=== PATIENT | female | born 1985 | race Caucasian/White ===

== ENCOUNTER → 2016-09-08 | Outpatient (CLI) | payer OTHER ==
[~2016-09-08] MED LIST: EFFEXOR100 MG PO; PHENERGAN25 MG RC; TIROSINT75 MCG PO; WELLBUTRIN 100100 MG PO
== END ==
LOC: BHSO 16:06
DX: F33.1 Major depressive disorder, recurrent, moderate (principal)

== ENCOUNTER → 2016-09-24 | Outpatient (CLI) | payer OTHER | LOC: BHSO 14:26 | DX: F41.1 Generalized anxiety disorder (principal) ==

== ENCOUNTER → 2016-11-23 | Outpatient (CLI) | payer OTHER ==
[~2016-11-23] MED LIST changes: +CLEOCIN HCL300 MG PO; +NORCO 325 MG-51 TAB PO
== END ==
LOC: BHSO 10:13
DX: F41.1 Generalized anxiety disorder (principal)

== ENCOUNTER 2017-02-12 11:18 | Emergency (ER) | payer OTHER ==
[~2017-02-12] VITALS: Ht 165.1 cm; Wt 86.4 kg
[~2017-02-12 11:18] MED LIST changes: -CLEOCIN HCL300 MG PO; -NORCO 325 MG-51 TAB PO
[2017-02-12 11:22] VITALS: BP 133/78; TEMP 98.5
[2017-02-12] MEDS ORDERED: NORCO 325 MG-51 TAB PO (14:58)
[2017-02-12] MEDS ORDERED: CLEOCIN HCL300 MG PO (15:02)
[2017-02-12 15:32] VITALS: PULSE 85
== END 2017-02-12 15:34 | disposition home or self-care (01) ==
LOC: COL.ER 11:18
DX: S51.012A Laceration without foreign body of left elbow, initial encounter (principal); F41.9 Anxiety disorder, unspecified; F17.210 Nicotine dependence, cigarettes, uncomplicated; Z98.51 Tubal ligation status; W55.12XA Struck by horse, initial encounter
CPT/HCPCS: J1170; J3010; J7030

== ENCOUNTER → 2017-09-02 | Outpatient (CLI) | payer OTHER ==
[~2017-09-02] MED LIST changes: +CLEOCIN HCL300 MG PO; +NORCO 325 MG-51 TAB PO
== END ==
LOC: BHSO 14:35
DX: F41.0 Panic disorder [episodic paroxysmal anxiety] (principal)
CPT/HCPCS: G0463

== ENCOUNTER 2018-05-04 05:59 | Emergency (ER) | payer OTHER ==
[~2018-05-04] VITALS: Ht 165.1 cm; Wt 81.8 kg
[2018-05-04 06:04] VITALS: BP 124/71; TEMP 98.6
[2018-05-04 07:02] VITALS: PULSE 84
== END 2018-05-04 07:03 | disposition home or self-care (01) ==
LOC: COL.ER 05:59
DX: T15.91XA Foreign body on external eye, part unspecified, right eye, initial encounter (principal)

== ENCOUNTER 2018-12-03 17:14 | Emergency (ER) | payer OTHER ==
[~2018-12-03] VITALS: Ht 165.1 cm; Wt 68.2 kg
[~2018-12-03 17:14] MED LIST changes: +CLARITIN 1010 MG/TAB PO; +INFANTS AQU400 IU/ML; +SYNTHROID0.1 MG/TAB PO; +VALTREX 50500 MG/TAB PO
[2018-12-03 17:34] VITALS: BP 131/59; TEMP 98.7
[2018-12-03 18:00] LABS: COLLECTION METHOD CLEAN CATCH
[2018-12-03 18:03] LABS: BASO # 0.1 (0.0-0.2); BASO % 0.5 % (0.0-2.0); EOS % 0.1 % (0-4.0); GRAN # 8.1 (1.4-6.5); GRAN % 72.8 % (42.2-75.2); HEMATOCRIT 39.3 % (37.0-47.0); LYMPH # 2.2 (1.2-3.4); LYMPH % 19.5 % (20.0-51.0); MEAN CELL VOLUME 95 fl (80.0-100.0); MEAN CORPUSCULAR HEMOGLOBIN 31 pg (27.0-31.0); MEAN CORPUSCULAR HGB CONC 33 g/dl (33.0-37.0); MEAN PLATELET VOLUME 9.2 fl (7.4-10.4); MONO # 0.7 (0.1-0.6); MONO % 6.6 % (1.7-9.3); PLATELET COUNT 266 K/mm3 (130-400); RED BLOOD COUNT 4.14 M/mm3 (4.10-5.30); REDCELL DISTRIBUTION WIDTH-CV 13.5 % (11.5-14.5)
[2018-12-03 18:17] LABS: MUCOUS Present /lpf; PH 5 (5-8); URINE APPEARANCE Hazy; URINE BACTERIA Rare /hpf; URINE BILIRUBIN Negative (NEGATIVE); URINE BLOOD 3+ (NEGATIVE); URINE COLOR Amber; URINE GLUCOSE Negative (NEGATIVE); URINE KETONE Negative (NEGATIVE); URINE LEUKOCYTE ESTERASE Negative (NEGATIVE); URINE NITRATE Positive (NEGATIVE); URINE PROTEIN(semi-quant) 2+ (NEGATIVE); URINE RBC >50 /hpf; URINE UROBILINOGEN >=4.0 mg/dL (NEGATIVE)
[2018-12-03 18:23] LABS: ALBUMIN 4.1 gm/dL (3.5-5.0); BILIRUBIN,TOTAL 0.7 mg/dL (0.0-1.0); CALCIUM 9.1 mg/dL (8.4-10.2); CREATININE, serum 0.67 (0.52-1.25)
[2018-12-03] MEDS ORDERED: OMNICEF 300MG300 MG PO ×2 (19:23)
[2018-12-03] MEDS ORDERED: ZOFRAN ODT4 MG PO ×2 (19:23)
[2018-12-03] MEDS ORDERED: NORCO 325 MG-51 TAB PO (19:23)
[2018-12-03 19:43] VITALS: PULSE 80
== END 2018-12-03 19:40 | disposition home or self-care (01) ==
LOC: COL.ER 17:14
PROVIDERS: Emergency Medicine
DX: N12 Tubulo-interstitial nephritis, not specified as acute or chronic (principal)
CPT/HCPCS: J0696; J1170; J1885; J2405; J7030

== ENCOUNTER 2019-03-29 10:23 | Emergency (ER) | payer OTHER ==
[~2019-03-29] VITALS: Ht 165.1 cm; Wt 72.3 kg
[~2019-03-29 10:23] MED LIST changes: +OMNICEF 300MG300 MG PO; +ZOFRAN ODT4 MG PO
[2019-03-29 10:27] VITALS: BP 126/73; TEMP 97.4
[2019-03-29 11:29] VITALS: PULSE 84
== END 2019-03-29 11:30 | disposition home or self-care (01) ==
LOC: COL.ER 10:23
DX: S49.91XA Unspecified injury of right shoulder and upper arm, initial encounter (principal); F17.210 Nicotine dependence, cigarettes, uncomplicated; Z98.890 Other specified postprocedural states; X50.1XXA Overexertion from prolonged static or awkward postures, initial encounter; Y92.009 Unspecified place in unspecified non-institutional (private) residence as the place of occurrence of the external cause

== ENCOUNTER 2019-04-16 17:08 | Emergency (ER) | payer OTHER ==
[~2019-04-16] VITALS: Ht 165.1 cm; Wt 72.7 kg
[2019-04-16 17:13] VITALS: BP 129/78; PULSE 94; TEMP 97.4
== END 2019-04-16 18:30 | disposition home or self-care (01) ==
LOC: COL.ER 17:08
DX: S61.012A Laceration without foreign body of left thumb without damage to nail, initial encounter (principal); E03.9 Hypothyroidism, unspecified; W26.0XXA Contact with knife, initial encounter; Y93.G3 Activity, cooking and baking; Y92.009 Unspecified place in unspecified non-institutional (private) residence as the place of occurrence of the external cause
CPT/HCPCS: J1670

== ENCOUNTER 2019-11-12 10:10 | Emergency (ER) | payer MEDICAID ==
[~2019-11-12] VITALS: Ht 165.1 cm; Wt 68.2 kg
[2019-11-12 10:23] VITALS: BP 132/85; TEMP 98.3
[2019-11-12 11:54] VITALS: PULSE 88
== END 2019-11-12 11:56 | disposition home or self-care (01) ==
LOC: COL.ER 10:10
DX: S61.411A Laceration without foreign body of right hand, initial encounter (principal); E03.9 Hypothyroidism, unspecified; Z23 Encounter for immunization; Z79.890 Hormone replacement therapy; W22.8XXA Striking against or struck by other objects, initial encounter; Y92.009 Unspecified place in unspecified non-institutional (private) residence as the place of occurrence of the external cause
CPT/HCPCS: J1670

== ENCOUNTER 2020-01-30 13:07 | Emergency (ER) | payer MEDICAID ==
[~2020-01-30] VITALS: Ht 165.1 cm; Wt 68.2 kg
[2020-01-30 13:11] VITALS: BP 143/85; TEMP 98.9
[2020-01-30 13:54] LABS: COLLECTION METHOD CLEAN CATCH
[2020-01-30 13:56] LABS: BASO # 0.1 (0.0-0.2); EOS # 0.1 (0.0-0.7); EOS % 1.8 % (0-4.0); GRAN # 4.3 (1.4-6.5); GRAN % 55.1 % (42.2-75.2); HEMOGLOBIN 13.1 g/dl (12.5-16.0); LYMPH # 2.6 (1.2-3.4); LYMPH % 33.1 % (20.0-51.0); MEAN CELL VOLUME 93 fl (80.0-100.0); MEAN CORPUSCULAR HEMOGLOBIN 31 pg (27.0-31.0); MEAN CORPUSCULAR HGB CONC 34 g/dl (33.0-37.0); MONO # 0.6 (0.1-0.6); MONO % 8.2 % (1.7-9.3); PLATELET COUNT 391 K/mm3 (130-400); RED BLOOD COUNT 4.21 M/mm3 (4.10-5.30); REDCELL DISTRIBUTION WIDTH-CV 12.6 % (11.5-14.5)
[2020-01-30 14:00] LABS: PH 7 (5-8); SQUAMOUS EPITHELIAL 0-2 /hpf; URINE APPEARANCE Clear; URINE BACTERIA None Seen /hpf; URINE BILIRUBIN Negative (NEGATIVE); URINE BLOOD 1+ (NEGATIVE); URINE COLOR Yellow; URINE GLUCOSE Negative (NEGATIVE); URINE KETONE Negative (NEGATIVE); URINE LEUKOCYTE ESTERASE Negative (NEGATIVE); URINE NITRATE Negative (NEGATIVE); URINE PROTEIN(semi-quant) Negative (NEGATIVE); URINE RBC 0-2 /hpf; URINE UROBILINOGEN Negative (NEGATIVE)
[2020-01-30 14:11] LABS: ALANINE AMINOTRANSFERASE 9 U/L (4-34); ALBUMIN 4.1 gm/dL (3.5-5.0); ALKALINE PHOSPHATASE 55 U/L (50-136); ANION GAP 10 mmol/L (7-16); AST,SGOT 17 U/L (15-37); BILIRUBIN,TOTAL 0.4 mg/dL (0.0-1.0); BLOOD UREA NITROGEN 8 mg/dL (7-17); CARBON DIOXIDE 22 mmol/L (22-30); CHLORIDE 106 mmol/L (98-107); CREATININE, serum 0.62 (0.52-1.25); GLUCOSE 97 mg/dL (74-106); POTASSIUM 3.8 mmol/L (3.4-5.0); SODIUM 138 mmol/L (137-145); TOTAL PROTEIN 6.8 gm/dL (6.4-8.2)
[2020-01-30 14:12] LABS: C-REACTIVE PROTEIN < 0.5 mg/dL (0.0-0.9)
[2020-01-30] MEDS ORDERED: NORCO 325 MG-51 TAB PO (15:22)
[2020-01-30 15:33] VITALS: PULSE 78
== END 2020-01-30 15:33 | disposition home or self-care (01) ==
LOC: COL.ER 13:07
PROVIDERS: Emergency Medicine
DX: R10.32 Left lower quadrant pain (principal); Z79.890 Hormone replacement therapy
CPT/HCPCS: J1170; J1885; J7030; Q9967

== ENCOUNTER 2021-05-01 23:52 | Emergency (ER) | payer MEDICAID ==
[~2021-05-01] VITALS: Ht 162.6 cm; Wt 68.2 kg
[~2021-05-01 23:52] MED LIST changes: +DIFLUCAN150 MG PO; +ZOFRAN 4MG T4 MG/TAB PO
[2021-05-02 00:04] VITALS: TEMP 97.7
[2021-05-02 01:15] LABS: BASO # 0.1 K/mm3 (0.0-0.2); BASO % 0.8 % (0.0-2.0); EOS # 0.1 K/mm3 (0.0-0.7); GRAN # 3.1 K/mm3 (1.4-6.5); GRAN % 51.3 % (42.2-75.2); HEMOGLOBIN 12.7 g/dl (12.5-16.0); LYMPH # 2.3 K/mm3 (1.2-3.4); LYMPH % 37.3 % (20.0-51.0); MEAN CELL VOLUME 92 fl (80.0-100.0); MEAN CORPUSCULAR HEMOGLOBIN 31 pg (27-31); MEAN CORPUSCULAR HGB CONC 33 g/dl (33.0-37.0); MONO # 0.5 K/mm3 (0.1-0.6); MONO % 8.1 % (1.7-9.3); PLATELET COUNT 299 K/mm3 (130-400); RED BLOOD COUNT 4.15 M/mm3 (4.10-5.30); REDCELL DISTRIBUTION WIDTH-CV 12.9 % (11.5-14.5)
[2021-05-02 01:31] LABS: ALBUMIN 4.2 gm/dL (3.5-5.0); ALKALINE PHOSPHATASE 36 U/L (40-150); ANION GAP 10 mmol/L (7-16); AST,SGOT 11 U/L (5-34); BILIRUBIN,TOTAL 0.4 mg/dL (0.2-1.2); BLOOD UREA NITROGEN 6 mg/dL (7-19); CALCIUM 8.7 mg/dL (8.4-10.2); CARBON DIOXIDE 22 mmol/L (22-29); CHLORIDE 113 mmol/L (98-107); CREATININE, serum 0.67 mg/dL (0.57-1.11); GLUCOSE 95 mg/dL (70-99); POTASSIUM 4.1 mmol/L (3.5-4.5); SODIUM 145 mmol/L (136-145); TOTAL PROTEIN 6.8 gm/dL (6.2-8.1)
[2021-05-02 01:33] LABS: ALANINE AMINOTRANSFERASE < 6 U/L (0-55)
[2021-05-02 03:14] LABS: COLLECTION METHOD CLEAN CATCH
[2021-05-02 03:35] LABS: PH 6 (5-8); SQUAMOUS EPITHELIAL 0-2 /hpf (0-10); URINE APPEARANCE Clear (CLEAR/HAZY); URINE BACTERIA None Seen (NONE SEEN); URINE BILIRUBIN Negative (NEGATIVE); URINE BLOOD Negative (NEGATIVE); URINE COLOR Colorless (YELLOW); URINE GLUCOSE Negative (NEGATIVE); URINE KETONE Negative (NEGATIVE); URINE LEUKOCYTE ESTERASE Negative (NEGATIVE); URINE NITRATE Negative (NEGATIVE); URINE PROTEIN(semi-quant) Negative (NEGATIVE); URINE RBC None Seen /hpf (0-2); URINE UROBILINOGEN Negative (NEGATIVE); URINE WBC 0-2 /hpf (0-2)
[2021-05-02] MEDS ORDERED: ZOFRAN ODT4 MG PO (05:17)
[2021-05-02] MEDS ORDERED: NORCO 325 MG-51 TAB PO (05:17)
[2021-05-02 05:23] VITALS: BP 128/78; PULSE 76
== END 2021-05-02 05:23 | disposition home or self-care (01) ==
LOC: COL.ER 23:52
PROVIDERS: Personal Emergency Response Attendant
DX: N83.202 Unspecified ovarian cyst, left side (principal); R11.2 Nausea with vomiting, unspecified; Z90.711 Acquired absence of uterus with remaining cervical stump; Z88.6 Allergy status to analgesic agent
CPT/HCPCS: J1200; J2270; J2405; J2550; J3010; J7030; Q9967

== ENCOUNTER 2021-05-03 07:03 | Observation (INO) | payer MEDICAID ==
[~2021-05-03] VITALS: Ht 165.1 cm; Wt 68.2 kg
[2021-05-03] VITALS (7 sets, daily range): BP systolic 111–130; BP diastolic 63–78; PULSE 62–93; TEMP 98–99.4
[2021-05-03 07:53] LABS: COLLECTION METHOD CLEAN CATCH
[2021-05-03 08:09] LABS: MUCOUS Present (NOT PRESENT); PH 5 (5-8); URINE APPEARANCE Hazy (CLEAR/HAZY); URINE BACTERIA None Seen (NONE SEEN); URINE BILIRUBIN Negative (NEGATIVE); URINE BLOOD Negative (NEGATIVE); URINE COLOR Yellow (YELLOW); URINE GLUCOSE Negative (NEGATIVE); URINE KETONE Negative (NEGATIVE); URINE LEUKOCYTE ESTERASE Trace (NEGATIVE); URINE NITRATE Negative (NEGATIVE); URINE PROTEIN(semi-quant) Negative (NEGATIVE); URINE RBC 0-2 /hpf (0-2)
[2021-05-03 08:26] LABS: BASO % 0.6 % (0.0-2.0); EOS # 0.2 K/mm3 (0.0-0.7); EOS % 2.7 % (0.0-4.0); GRAN # 4.3 K/mm3 (1.4-6.5); GRAN % 60.7 % (42.2-75.2); HEMATOCRIT 39.8 % (37.0-47.0); HEMOGLOBIN 13.1 g/dl (12.5-16.0); LYMPH # 1.9 K/mm3 (1.2-3.4); MEAN CELL VOLUME 93 fl (80.0-100.0); MEAN CORPUSCULAR HEMOGLOBIN 31 pg (27-31); MEAN CORPUSCULAR HGB CONC 33 g/dl (33.0-37.0); MEAN PLATELET VOLUME 9.8 fl (7.4-10.4); MONO # 0.6 K/mm3 (0.1-0.6); MONO % 8.4 % (1.7-9.3); PLATELET COUNT 289 K/mm3 (130-400); RED BLOOD COUNT 4.26 M/mm3 (4.10-5.30); REDCELL DISTRIBUTION WIDTH-CV 13.2 % (11.5-14.5)
[2021-05-03 08:29] LABS: ALANINE AMINOTRANSFERASE < 6 U/L (0-55); ALBUMIN 3.9 gm/dL (3.5-5.0); ALKALINE PHOSPHATASE 35 U/L (40-150); ANION GAP 11 mmol/L (7-16); AST,SGOT 9 U/L (5-34); BILIRUBIN,TOTAL 0.7 mg/dL (0.2-1.2); BLOOD UREA NITROGEN 14 mg/dL (7-19); C-REACTIVE PROTEIN < 0.02 mg/dL (0.00-0.50); CALCIUM 8.9 mg/dL (8.4-10.2); CARBON DIOXIDE 22 mmol/L (22-29); CHLORIDE 108 mmol/L (98-107); CREATININE, serum 0.76 mg/dL (0.57-1.11); GLUCOSE 122 mg/dL (70-99); LIPASE 22 U/L (8-78); POTASSIUM 3.6 mmol/L (3.5-4.5); SODIUM 141 mmol/L (136-145); TOTAL PROTEIN 6.3 gm/dL (6.2-8.1)
--- NOTE | 2021-05-03 16:04 | NUR ---
1545 TO RM 222 IN HOSPITAL BED. SM AMT OF RED DRNG AROUND BOTTOM DRSG-OUTLINED. IV INFUSING IN RAC. UP TO BATHROOM-VOIDED 300 CC CL YELLOW URINE.C/O BEING COLD-WARM BLANKET ON.SCDS ON. BOYFRIEND AT BEDSIDE.
--- NOTE | 2021-05-03 16:57 | NUR ---
DRINKING WATER. NO COMPLAINTS.
--- NOTE | 2021-05-03 17:21 | NUR ---
1700 UP TO BATHROOM-VOIDED 200 CC CLEAR YELLOW URINE. NO C/O PAIN. SL INCREASE IN DRNG ON DRESSING. NEW LINE DRAWN.
--- NOTE | 2021-05-03 18:56 | NUR ---
1730 PT ORDERED SUPPER. UP TO URINATE 200 CC
--- NOTE | 2021-05-03 19:00 | NUR ---
1900 UP TO BR WITH ASSIST AND VOIDED 300CC EASILY. SANA WELL. REG DIET TAKEN
--- NOTE | 2021-05-03 19:02 | NUR ---
1800 ROXICODONE GIVEN FOR PAIN AT LOWER INCISION BY BLADDER AREA.
--- NOTE | 2021-05-03 20:00 | NUR ---
2000 UP TO BR ON OWN AND VOIDED 400CC. IV INF AND TO INT. C/O SOME NAUSEA BUT TAKING PO WELL. 2029 ZOFRAN 4 MG IV FOR NAUSEA WITH GOOD RELIEF. LOWER ABD DRESSING REINFORCED WITH 2X2 FOR SOME SL DRAINAGE NOTED ON PT GOWN
--- NOTE | 2021-05-03 22:40 | NUR ---
2240 PT CALLED OUT WITH C/O PAIN. PT FOUND SITTING ON SIDE OF BED CLUTCHING RIGHT SIDE OF ABD UNDER RIGHT BREAST STATING IT IS SHARP PAIN. PT CRYING AND HYPERVENTALATING. LISTENED FOR BOWEL SOUNDS WITH NONE HEARD. PT CONTS TO CRY AND HOLD BREATH. ASSISTED TO STANDING UP AT SIDE OF BED WITH SOME RELIEF. 2245 MORPHINE 2 MG IV GIVEN. REMAINS UP. EACH TIME PT ATTEMPTS TO SIT DOWN SHE GAUTAM OUT AND CLUTCHES AREA UNDER RIGHT BREAST AND STANDS UP. FEELS BETTER IN STANDING POSITION OR WALKING AROUND THE ROOM 2315 CONTS TO HAVE PAIN IN RIGHT SIDE ABD AND IN RIGHT SHOULDER WITH NO RELIEF. DR JONES NOTIFIED AND NEW ORDER OBTAINED. 2320 MORPHINE 5 MG IV GIVEN. ATTEMPTED TO SIT ON BED AFTER MORPHINE BUT IMMEDIATELY STANDS UP STATING IT HURTS TO BAD, CRYING AND HYPERVENTALTING. BED POSITIONED TO PT CAN LEAN OVER IT ON PILLOWS. FEELS BETTER THAT WAY. 2350 PT STATES SHE TAKES XANAX AT HOME AND THAT MAY HELP HER. DR JONES NOTIFIED AND ORDER OBTAINED 2354 XANAX 0.25 GIVEN.
[2021-05-04 00:50] VITALS: BP 113/70; PULSE 108; TEMP 97.7
--- NOTE | 2021-05-04 00:50 | NUR ---
0050 PT TIRED AND WANTS TO TRY TO LAY DOWN. ASSISTED X2 TO LYING POSITION. PT CRYING, HOLDING BREATH, HYPERVENTALATING, CRYING IT HURTS TOO MUCH. TURNED TO LL. CRYING AND WANTING TO STAND UP. MORPHINE 5 MG IV GIVEN. TURNED TO RIGHT SIDE. PT STATES SHE FELT LIKE A BALL MOVED IN HER STOMACH AND NOW FEELS BETTER BUT STILL HURTS. 0100 TURNED BACK TO LEFT SIDE. FEELING BETTER. STATES THINKS CAN SLEEP NOW. 0130 UP TO BR WITH ASSIST AND VOIDED 600CC. RETURNED TO BED AND FEELING LESS DISCOMFORT NOW.
[2021-05-04 04:00] VITALS: BP 106/65; PULSE 75; TEMP 98.5
--- NOTE | 2021-05-04 04:15 | NUR ---
0415 PT UP TO BR ON OWN AND SANA WELL. CONTS TO C/O GAS PAIN IN UPPER ABD. OXYCCODONE X1 PO GIVEN. WANTING SOMETHING TO EAT. SANDWICH GIVEN 0445 ASK FOR ANOTHER SANDWICH TO EAT.
[2021-05-04] MEDS ORDERED: IBU600 MG PO (06:34)
[2021-05-04] MEDS ORDERED: ROXICODONE 55 MG/TAB PO (06:35)
[2021-05-04 07:30] VITALS: BP 91/42; PULSE 68; TEMP 98
--- NOTE | 2021-05-04 09:25 | NUR ---
Initial visit; Patient somewhat thanked Out Patient Therapist for looking in on her and wishing her God's blessings.
[2021-05-04 12:00] VITALS: BP 103/62; PULSE 74; TEMP 98.6
--- NOTE | 2021-05-04 12:00 | NUR ---
1200- Dr Munroe at bedside, removes bandaids x3 and dressing from abd. Discusses POC.
[2021-05-04 12:36] LABS: COLLECTION METHOD CLEAN CATCH
[2021-05-04 12:56] LABS: PH 5 (5-8); SQUAMOUS EPITHELIAL 0-2 /hpf (0-10); URINE APPEARANCE Turbid (CLEAR/HAZY); URINE BACTERIA Rare /hpf (NONE SEEN); URINE BILIRUBIN Negative (NEGATIVE); URINE BLOOD 2+ (NEGATIVE); URINE COLOR Yellow (YELLOW); URINE GLUCOSE Negative (NEGATIVE); URINE KETONE Negative (NEGATIVE); URINE LEUKOCYTE ESTERASE 3+ (NEGATIVE); URINE NITRATE Positive (NEGATIVE); URINE PROTEIN(semi-quant) 1+ (NEGATIVE); URINE UROBILINOGEN Negative (NEGATIVE); URINE WBC >50 /hpf (0-2)
[2021-05-04 16:30] VITALS: BP 113/66; PULSE 86; TEMP 98.5
--- NOTE | 2021-05-04 17:20 | NUR ---
Discharge instructions reviewed. Patient verbalizes understanding.
--- NOTE | 2021-05-04 19:15 | NUR ---
191- PT'S RIDE IS HERE. PT DISMISSED TO HOME PER WHEELCHAIR ACCOMPANIED BY FAMILY.
== END 2021-05-04 19:15 | disposition home or self-care (01) ==
LOC: COL.ER 07:03 → LDRO 07:04 → COL.ER 07:04 → OB 07:04 → EDSTATUS 07:15 → OB 11:20 → LDRO 11:20 → EDSTATUS 11:21 → OB 05-04 19:15 → LDRO 05-04 19:15 → OB 05-04 19:15
PROVIDERS: Family Medicine; ADMIT Obstetrics & Gynecology
DX: N83.202 Unspecified ovarian cyst, left side (principal); N73.6 Female pelvic peritoneal adhesions (postinfective); E03.9 Hypothyroidism, unspecified; F17.210 Nicotine dependence, cigarettes, uncomplicated; K21.9 Gastro-esophageal reflux disease without esophagitis; E07.9 Disorder of thyroid, unspecified; G47.419 Narcolepsy without cataplexy; Z79.890 Hormone replacement therapy; Z79.899 Other long term (current) drug therapy
CPT/HCPCS: J1100; J1170; J1200; J1885; J2270; J2405; J2704; J2710; J3010; J7120; Q9967

== ENCOUNTER 2021-05-05 05:18 | Inpatient (IN) | payer MEDICAID ==
[~2021-05-05] VITALS: Ht 165.1 cm; Wt 70.0 kg
[~2021-05-05 05:18] MED LIST changes: +IBU600 MG PO; +ROXICODONE 55 MG/TAB PO
[2021-05-05 05:59] LABS: ALBUMIN 3.5 gm/dL (3.5-5.0); BILIRUBIN,TOTAL 1.1 mg/dL (0.2-1.2); CALCIUM 8.4 mg/dL (8.4-10.2); CREATININE, serum 0.73 mg/dL (0.57-1.11); POTASSIUM 3.3 mmol/L (3.5-4.5); TOTAL PROTEIN 6.1 gm/dL (6.2-8.1)
[2021-05-05 06:00] LABS: HEMOGLOBIN 11.6 g/dl (12.5-16.0); MEAN CELL VOLUME 90 fl (80.0-100.0); MEAN CORPUSCULAR HEMOGLOBIN 31 pg (27-31); MEAN CORPUSCULAR HGB CONC 34 g/dl (33.0-37.0); PLATELET COUNT 257 K/mm3 (130-400); RED BLOOD COUNT 3.76 M/mm3 (4.10-5.30); REDCELL DISTRIBUTION WIDTH-CV 13.2 % (11.5-14.5)
[2021-05-05 06:02] LABS: HEMATOCRIT 33.9 % (37.0-47.0)
[2021-05-05 06:39] LABS: BAND 10 % (0-10); LYMPHOCYTE 5 % (20.0-51.0); NEUTROPHILS 79 % (42.0-75.2); PLATELET ESTIMATE NORMAL (NORMAL)
[2021-05-05 16:53] VITALS: BP 120/58; PULSE 116
[2021-05-05 17:08] VITALS: PULSE 121
[2021-05-05 17:23] VITALS: BP 112/59; PULSE 104
[2021-05-05 19:31] VITALS: BP 102/45; PULSE 123; TEMP 102.6
--- NOTE | 2021-05-05 21:59 | NUR ---
PATIENT WAS RUNNING A FEVER OF 102.6. NOTIFIED, PRN MOTRIN GIVEN AND SCHEDULED TYLENOL DUE AT 0000. C/O SEVERE PAIN 01/23, FENTANYL SLOW PUSHED. PATIENT CURRENTLY RESTING IN BED, EASY TO AROUSE. DENIES PAIN NEEDS AT THIS TIME. JULIAN DOES SEEM TO BE POSITIONAL AND NEEDS ASSISTANCE TO DRAIN.
[2021-05-05 23:34] VITALS: BP 104/56; PULSE 103; TEMP 98.9
[2021-05-06] VITALS (8 sets, daily range): BP systolic 90–108; BP diastolic 48–68; PULSE 92–97; TEMP 97.8–99
--- NOTE | 2021-05-06 01:53 | NUR ---
PATIENTS TEMPERATURE NOW WITHIN NORMAL RANGE. SCHEDULED TYLENOL GIVEN. PATIENT PROVIDED WITH SOME CLEAR LIQUID SNACKS. REPOSITIONED IN BED. CALL LIGHT WITHIN REACH.
--- NOTE | 2021-05-06 05:28 | NUR ---
patient c/o nausea and moderate pain. requested her iv pain meds, patient teaching done regarding low bp and prn tylenol and motrin given. IV zofran given. will recheck pain and bp.
--- NOTE | 2021-05-06 06:09 | NUR ---
BLOOD PRESSURE RECHECK 90/50. NARCOTICS HELD.
[2021-05-06 06:11] LABS: HEMOGLOBIN 10.6 g/dl (12.5-16.0); MEAN CELL VOLUME 92 fl (80.0-100.0); MEAN CORPUSCULAR HEMOGLOBIN 31 pg (27-31); MEAN CORPUSCULAR HGB CONC 34 g/dl (33.0-37.0); MEAN PLATELET VOLUME 9.9 fl (7.4-10.4); PLATELET COUNT 227 K/mm3 (130-400); RED BLOOD COUNT 3.41 M/mm3 (4.10-5.30); REDCELL DISTRIBUTION WIDTH-CV 13.4 % (11.5-14.5)
[2021-05-06 06:13] LABS: CREATININE, serum 0.71 mg/dL (0.57-1.11); POTASSIUM 3.2 mmol/L (3.5-4.5)
[2021-05-06 06:22] LABS: HEMATOCRIT 31.5 % (37.0-47.0)
--- NOTE | 2021-05-06 07:13 | NUR ---
called & made aware of critical WBC of 22.3. K+ 3.2 reviewed. K+ protocol ordered. Vitals signs discussed. Will continue to monitor closely.
--- NOTE | 2021-05-06 08:10 | NUR ---
Patient resting in bed. Reports pain 01/23. Roxicodone per orders. Patient main complaint is fernandez discomfort & she is wanting it removed. Will let know. Patient provided with clear liquids. Patient stood at edge of bed and she felt better with the movement. BERKLEY drain to compression. New dressing to drain, new drain gauze & tegaderm. Abdomen soft, distended. Bowels hypoactive. Denies flatus. Lap site x6. Edges well approximated. Patient has had multiple request & met her needs at request.
[2021-05-06] MEDS ORDERED: PROVIGIL200 MG PO (08:12)
--- NOTE | 2021-05-06 09:19 | NUR ---
Initial visit; Alicia having a difficult time with lots of pain. Bilingual School Psychologist will keep her in Bilingual School Psychologist's prayers and follow up.
--- NOTE | 2021-05-06 09:20 | NUR ---
Patient complaints of buring with urination, she has concerns about UTI. notifed & AZO orders per her request. We reviewed antibioitcs should cover if she still has UTI.
--- NOTE | 2021-05-06 09:58 | NUR ---
SW met with the patient to discuss discharge plan. The patient lives in [place] with two of her children. They are under the age of 18. She reports that they are staying with their grandparents while she is here. She reports independence with ADLs and does not have any DME. The patient's primary care provider is Noy Newman APRN and she receives her medications from [facility]. The patient does not have a DPOA-HC and she was not interested in completing a DPOA-HC while here. The patient is not and she has four children all under the age of 18. She states that her other two children live with her 50% of the time. Her mother, Jessica (ph#[phone]), is in [place] right now. She would like her boyfriend, Jaime Betts (ph#[phone]) as her emergency contact right now. The patient plans on returning home upon discharge. No additional needs at this time. *Discharge plan: home*
--- NOTE | 2021-05-06 10:30 | NUR ---
Patient requesting phenergan, notified. Orders obtained.
--- NOTE | 2021-05-06 11:30 | NUR ---
Patient reports heartburn & indegestion. notifed, orders obtained.
--- NOTE | 2021-05-06 12:30 | NUR ---
Patient continues to rate pain 9/10, especially when getting in & out of bed, facial grimacing noted. Patient medicated with Oxycodone per orders. Patient reports relief after phenergan. Nausea improved. She is thankful to get protonix for reflex. Patient is voiding adequately. Hat was missed this last void. Assisted with hygiene. She brushed her teeth, fresh linens. Patient ambulates to bathroom with walker & steady of her feet. Patient has had beef broth and liked the taste, otherwise she has not liked the clear liquids offered. Will continue to closely monitor.
--- NOTE | 2021-05-06 15:24 | NUR ---
Patient reports gas pain. She is passing flatus & had stool. Incontinent stool. Pericares provided. Mesh underwear on. Ivf per orders. Friend at bedside.
--- NOTE | 2021-05-06 17:07 | NUR ---
Patient reports her pain is getting worse. Rating 50/10. notifed. We reviewed patient vitals and status. Ice pack suggested & given to patient. She refuses reports she is too sensive to ice. Patient has been medicated with both roxicodone & dilaudid. Pharmacy making phenergan dose. Patient has visitors at bedside. notifed a second time of patient continued reports of pain. We will given medications time to work and continue to monitor closely
--- NOTE | 2021-05-06 19:22 | NUR ---
Patient concerned about yeast infection. made aware & diflucan ordered. Patient up to the bathroom again. Voided. Patient does seem like her pain is slightly imporved 01/23 last time i asked.
[2021-05-07] VITALS (8 sets, daily range): BP systolic 90–129; BP diastolic 57–80; PULSE 83–93; TEMP 97.9–98.6
--- NOTE | 2021-05-07 02:41 | NUR ---
PT USES CALL LIGHT TO REQUEST PAIN MEDICATION ET BENADRYL. WHEN THIS NURSE ENTERS ROOM, PT IS GROANING, ANXIOUS ET IS SCRATCHING HER ARMS ET CHEST. NO RASH IS SEEN BUT PT HAS RED SCRATCH TOURE ON HER SKIN. PT STATES THAT SHE NEEDS BENADRYL NOW. EXPLAINED TO PT THAT DOCTOR MUST BE CALLED TO ORDER MEDICATION. PT IS GIVEN COOL WET WASHCLOTH PER REQUEST. DR. GOULD CALLED ET NOTIFIED OF PT CONDITION ET REQUEST. NEW ORDER RECEIVED FOR BENADRYL IV. THIS NURSE RETURNS TO PT ROOM TO FIND PT IN BR. PT STATES THAT THERE WAS A SPIDER IN BED WITH HER, SHE SMASHED THE SPIDER ET FLUSHED IT DOWN THE TOILET, SHE NO LONGER IS ITCHING ET DOESN'T NEED THE BENADRYL. PT VOIDS ET GOWN IS CHANGED, ASSISTED BACK INTO BED WITH WALKER, REQUIRES ASSISTANCE TO PUT LEGS INTO BED ET POSITION PILLOWS. PT GROANS ET GRIMACES WITH MOVEMENT. IVF INFUSING. PT HAS K-PAD ON BACK. HOB ELEVATED. RESPIRATIONS UNLABORED. CALL LIGHT WITHIN REACH.
--- NOTE | 2021-05-07 03:00 | NUR ---
PT REQUESTING ZOFRAN, ADDITIONAL PAIN MEDICATION, ET SOMETHING TO EAT. PT STATES THAT HAVING PILLS ON HER EMPTY STOMACH IS MAKING HER FEEL SICK. PT IS GIVEN 2 SALTINE CRACKERS ET ENCOURAGED TO DRINK FLUIDS. EXPLAINED TO PT THAT PAIN MEDICATION, EVEN IV, MAY CONTRIBUTE TO NAUSEA ET STOMACH UPSET ET THAT FOOD MAY CAUSE MORE NAUSEA ET VOMITING. PT IS GIVEN BEEF BROTH, INDIAN ICE ET HER WATER IS RE-FILLED. PT DENIES OTHER NEEDS. RESPIRATIONS UNLABORED. CALL LIGHT WITHIN REACH.
--- NOTE | 2021-05-07 04:38 | NUR ---
PT ADMINISTERED ZOFRAN ET DILAUDID. PT REQUESTS TO ALSO HAVE FENTANYL @ THIS TIME R/T HELPING HER SLEEP EARLIER IN NIGHT. EXPLAINED TO PT THAT FENTANYL CAN BE GIVEN IN 30 MINUTES IF PT DOES NOT HAVE ADEQUATE RELIEF OF PAIN, TOO MUCH PAIN MEDICATION CAN CAUSE BLOOD PRESSURE TO DECREASE, FENTANYL IS ORDERED FOR BREAKTHROUGH PAIN. PT USES CALL LIGHT ET REQUESTS TO SPEAK TO CHARGE NURSE. ATILIO QUIROZ TALKING TO PT @ THIS TIME.
--- NOTE | 2021-05-07 05:23 | NUR ---
ATILIO NICHOLSON RN RESUMING CARE OF PT ET MEDICATIONS.
[2021-05-07 06:22] LABS: MEAN CELL VOLUME 94 fl (80.0-100.0); MEAN CORPUSCULAR HEMOGLOBIN 31 pg (27-31); MEAN CORPUSCULAR HGB CONC 33 g/dl (33.0-37.0); MEAN PLATELET VOLUME 10.3 fl (7.4-10.4); PLATELET COUNT 215 K/mm3 (130-400); RED BLOOD COUNT 3.28 M/mm3 (4.10-5.30); REDCELL DISTRIBUTION WIDTH-CV 13.3 % (11.5-14.5)
[2021-05-07 06:26] LABS: HEMATOCRIT 30.8 % (37.0-47.0)
[2021-05-07 06:37] LABS: CALCIUM 7.6 mg/dL (8.4-10.2); CREATININE, serum 0.65 mg/dL (0.57-1.11); MAGNESIUM 1.5 mg/dL (1.6-2.6); PHOSPHOROUS 2.7 mg/dL (2.3-4.7); POTASSIUM 3.3 mmol/L (3.5-4.5)
--- NOTE | 2021-05-07 07:00 | NUR ---
Report received from RICHIE Sharma. PT in bed resting, assisted up to bathroom, unable to lift left leg on own d/t pain in abd on L side. BERKLEY drain serous. REsting quietly after return to bed, will continue to monitor.
[2021-05-07] MEDS ORDERED: LEVAQUIN 5500 MG/TA1 PO (09:43)
[2021-05-07] MEDS ORDERED: FLAGYL500 MG PO (09:44)
--- NOTE | 2021-05-07 10:51 | NUR ---
Pt dropped potassium, and 10 mg roxicodone so replaced and wasted old ones and pulled new ones.
--- NOTE | 2021-05-07 11:11 | NUR ---
Assessment charted. Pt in bed resting, advanced diet to generl per Marcelo and he also states pt can shower with BERKLEY drain. Abd has some bruising around various lap sites, all are well approximated, BERKLEY drain site has small amount of shadowing around dressing, will change after shower today. INT to LH. PRN pain and nausea meds given per request. Discussed need to try PO options if we want to dishcarge soon, pt agreeable to plan aftr 1 dose of IV pain meds. Will continue to monitor.
--- NOTE | 2021-05-07 17:17 | NUR ---
Pt continues to have pain, discussd plan to avoid IV pain medication per dr. Robertson but pt states she cannot do that at this time as pain is too much for her. Denies nausea. States stomach/ABD is becoming increasingly firm and distended, discussed backing off on PO intake and taking things slow, pt agreeable. Resting in bed, encouraged to get up and move around often, states she will walk this evening. Denies needs, PRN pain meds given per request, will continue to monitor and give rport to [facility] shift nurse who will resume care.
--- NOTE | 2021-05-08 02:09 | NUR ---
PATIENT HAD SOME IRRITATION TO BERKLEY DRAIN SITE. STATES SHE APPLIED HER OWN NEOSPORIN ON IT AND IT WAS GETTING WORSE. DRESSING REMOVED, NEW DRAIN GAUZE APPLIED WITH PAPER TAPE. IV ABX INFUSION STARTED TO LEAK OUT. NEW DRESSING APPLIED AND IV FLUSHES WITHOUT ISSUE, RESUMED IV ABX. PATIENT TEACHING DONE REGARDING PAIN CONTROL. HAS HAD PRN DELORIS AND MOTRIN AND SCHEDULED TYLENOL. PATIENT WAS NAUSEATED AND HAD IV ZOFRAN AND PHENERGAN. PATIENT THEN ATE A CAN OF PROGRESSIVE SOUP AND SOME CRACKERS AND ICECREAM. NO FURTHER NEEDS AT THIS TIME. PATIENT RESTING IN BED. CALL LIGHT WITHIN REACH.
[2021-05-08 04:48] VITALS: BP 103/65; PULSE 92; TEMP 98
--- NOTE | 2021-05-08 06:32 | NUR ---
PATIENT HAD LARGE EMESIS AFTER HAVING HER PRN DELORIS. PRN ZOFRAN PUSHED. WAS STILL NAUSEATED, SO PRN PHENERGAN WAS GIVEN. PATIENT THEN PASSED GAS AND HAD "LARGE" BOWEL MOVEMENT ACCORDING TO PATIENT. PATIENT C/O SEVERE PAIN FROM VOMITING AND WAS GIVEN SCHEDULED TYLENOL AND THEN PRN DILAUDID. PATIENT IS NOW LAYING IN BED. CALL LIGHT WITHIN REACH.
[2021-05-08 07:19] LABS: MEAN CELL VOLUME 91 fl (80.0-100.0); MEAN CORPUSCULAR HEMOGLOBIN 31 pg (27-31); MEAN CORPUSCULAR HGB CONC 34 g/dl (33.0-37.0); MEAN PLATELET VOLUME 9.8 fl (7.4-10.4); PLATELET COUNT 250 K/mm3 (130-400); RED BLOOD COUNT 3.59 M/mm3 (4.10-5.30); REDCELL DISTRIBUTION WIDTH-CV 13.3 % (11.5-14.5)
[2021-05-08 07:24] LABS: HEMATOCRIT 32.8 % (37.0-47.0)
--- NOTE | 2021-05-08 07:30 | NUR ---
Pt doing okay at this time. She did have pain medication about an hour ago, but reports she is hurting again. I discussed with her that oral pain medication would benefit her more due to lasting longer. During report, I was told that she took pain pills around 0430 and then shortly after threw them up. I did give the roxicodone although per time, it was too early. She did eat saltine crackers and tolerated them. Pt requesting to not be bothered for about an hour as she states she did not get any sleep last night. Informed her that we needed to obtain her vital signs and then would give her some time to get some rest.
[2021-05-08 07:51] VITALS: BP 100/53; PULSE 79; TEMP 97.9
[2021-05-08 07:51] LABS: CALCIUM 8.1 mg/dL (8.4-10.2); CREATININE, serum 0.7 mg/dL (0.57-1.11); MAGNESIUM 1.9 mg/dL (1.6-2.6); POTASSIUM 3.9 mmol/L (3.5-4.5)
[2021-05-08 13:20] VITALS: BP 122/68; PULSE 88; TEMP 98.6
--- NOTE | 2021-05-08 15:09 | NUR ---
Pt had mechanical soft diet delivered. She is not happy with the fact that everything is chopped up. Explained that the intention was for it to be easier to digest. Pt stated that she wants a regular diet back. Talked with Dr Craft and diet changed. Pt has managed better today with oral pain medication. She is up independently in the room, but when staff is in the room when she needs to get up or back in bed, she asks for a lot of help. Pt does use a walker to ambulate in the halls. PRN nausea medication given earlier which pt stated did help.
[2021-05-08 16:28] VITALS: BP 116/69; PULSE 85; TEMP 98.4
--- NOTE | 2021-05-08 16:55 | NUR ---
Pt consistently rates her pain 8-9/10 regardless of what she is doing. I did just recently wake her and when asked about her pain she stated it was an 8. PRN pain medication given. She reports that her pain has been managed okay with alternating the tylenol and motrin and then doing the roxicodone added in. Pt continues to get up independently in the room. Earlier she did ask to take a shower "later." I informed her that she just needed to let us know when. Pt has yet to ask for a shower, continues to state "later." No other needs, verbalized, call light within reach
--- NOTE | 2021-05-08 17:41 | NUR ---
Pt recently rang from the bathroom. She was on her knees throwing up. Emesis was green in color. Pt assisted back to bed. Pt's boyfriend present now and assisting pt with basic needs. IV pain medication given. Pt was only able to eat a couple bites prior to vomiting. No other needs verbalized
--- NOTE | 2021-05-08 18:18 | NUR ---
Pt more calm now resting in bed. She still rates her pain 9/10. She is having complaints of her throat burning, PRN given.
[2021-05-08 19:41] VITALS: BP 128/61; PULSE 94; TEMP 98.2
--- NOTE | 2021-05-08 20:15 | NUR ---
Pt. sitting up in bed at this time. Pt. is A&OX3, assessment complete. INT to rt. hand patent but pt. c/o pain to the site. Pt. also yells out when the pt. assumes this nurse is pushing ns flush through the IV. Pt. request a new IV. 22g started to rt. forearm 1 attempt. Pt. tolerated. Pt. did ambulate 1 loop in th baeza this evening. After a ambulating pt. reported pain at a 8 on pain scale and requested Dilaudid. Gave meds per orders. Pt. denies further needs, call light within reach.
[2021-05-08 22:49] VITALS: BP 113/62; PULSE 88; TEMP 98.1
[2021-05-09 03:20] VITALS: BP 108/60; PULSE 82; TEMP 98
[2021-05-09 07:00] LABS: HEMOGLOBIN 10.2 g/dl (12.5-16.0); MEAN CELL VOLUME 91 fl (80.0-100.0); MEAN CORPUSCULAR HEMOGLOBIN 30 pg (27-31); MEAN CORPUSCULAR HGB CONC 33 g/dl (33.0-37.0); MEAN PLATELET VOLUME 9.9 fl (7.4-10.4); PLATELET COUNT 291 K/mm3 (130-400); RED BLOOD COUNT 3.35 M/mm3 (4.10-5.30); REDCELL DISTRIBUTION WIDTH-CV 13.6 % (11.5-14.5)
[2021-05-09 07:23] LABS: HEMATOCRIT 30.5 % (37.0-47.0)
[2021-05-09 08:32] VITALS: BP 166/66; PULSE 83; TEMP 98.6
--- NOTE | 2021-05-09 09:07 | NUR ---
Dr. Craft in the room, removed patient's BERKLEY drain. Patient yelled in pain during the removal. Patient throwing up green bile. PRN promethazine given. Patient refused dilaudid for pain. Dr. Craft called and IV toradol was ordered and given.
[2021-05-09 09:11] LABS: BAND 10 % (0-10); EOSINOPHIL 2 % (0-4); LYMPHOCYTE 13 % (20.0-51.0); NEUTROPHILS 62 % (42.0-75.2); PLATELET ESTIMATE NORMAL (NORMAL)
[2021-05-09 09:12] LABS: ANISOCYTOSIS 1+; BURR CELLS 1+
--- NOTE | 2021-05-09 11:09 | NUR ---
Received report from RICHIE Bassett. PT resting in bed trying to eat. She was able to take a few bites but then stated that she felt nauseated. Pt does have bowel sounds, heart rate regular and lungs clear. Abd is rounded, somewhat firm, comparible to yesterday. Incisions are well approximated, no redness or drainage. Discussed with pt that she needs to walk as often as possible. Pt is worried about going home because she lives by herself and doesn't have anyone to take care of her. Informed her that she has no restrictions. Just no heavy lifting pulling or pushing. Pt did state that her pain has decreased since the drain was removed. Gave pt a sprite and instructed just small sips. Pt did have a cup of medications that it was reported that the sole molder nurse left in her room. All pills wasted as I am not sure what they all were. Pt was aware and okay with this.
--- NOTE | 2021-05-09 12:30 | NUR ---
Pt ambulated around the surgical/IPR unit. She only took about 20 steps before she would stop. She did use a walker stating that she did not think that she could walk without one. Once pt back in the room. she did ask for the toradol. Informed her that it was ordered for every 6 hours and she received it around 0830. Pt denied any other needs, call light within reach
[2021-05-09 13:17] VITALS: BP 111/65; PULSE 90; TEMP 98.4
--- NOTE | 2021-05-09 15:19 | NUR ---
Went in to see if pt was ready to walk. Woke pt when I entered the room. She refused walking at this time stated that she was wanting to keep resting. Informed her that I would check back in about 30 minutes and she nodded in agreement
[2021-05-09 16:42] VITALS: BP 115/68; PULSE 87; TEMP 98.6
--- NOTE | 2021-05-09 17:35 | NUR ---
Pt did get about a 2 hour nap in. When she woke, assisted her with getting in to the shower. She stated she overall felt okay, still rating pain 7-8/10. Reports no nausea at this time.
[2021-05-09 18:52] VITALS: BP 126/70; PULSE 76; TEMP 98
--- NOTE | 2021-05-09 19:30 | NUR ---
Pt. laying in bed with eyes closed and holding stomach. Pt. is A&OX3, shift assessment complete. INT to lt. ac patent. Pt. reports pain is "horrible". Offered pain medication and pt. states, "I'm not going to take anything until this cramping goes away". Reminded pt. that ambulating will help her bowels get to moving. Pt. states "I know, I'm not moving until this cramping goes away". This nurse attempted to explain that the cramping will most likely not bet better unless she ambulates. Pt. does not seem interested in and ignores this nurse. Pt. told that this nurse will bring the pt. pain medication or nausea medications when ever they are ready to take them. Pt. continues to ignore this nurse.
--- NOTE | 2021-05-09 21:00 | NUR ---
Pt. called out from the bathroom. Pt. bent over toilet vomiting. Pt. request nausea and pain meds. Gave per orders.
--- NOTE | 2021-05-09 22:00 | NUR ---
Pt.'s pain was worse after toradol, gave a dose of dilaudid. Pt. able to ambulate the halls at this time.
[2021-05-10 02:50] VITALS: BP 122/65; PULSE 84; TEMP 98
[2021-05-10 03:54] VITALS: BP 124/68; PULSE 75; TEMP 98.7
[2021-05-10 08:01] VITALS: BP 117/71; PULSE 87; TEMP 98.9
[2021-05-10 08:52] LABS: HEMOGLOBIN 12.1 g/dl (12.5-16.0); MEAN CELL VOLUME 91 fl (80.0-100.0); MEAN CORPUSCULAR HEMOGLOBIN 31 pg (27-31); MEAN CORPUSCULAR HGB CONC 34 g/dl (33.0-37.0); PLATELET COUNT 347 K/mm3 (130-400); RED BLOOD COUNT 3.96 M/mm3 (4.10-5.30); REDCELL DISTRIBUTION WIDTH-CV 13.5 % (11.5-14.5)
[2021-05-10 08:58] LABS: HEMATOCRIT 35.9 % (37.0-47.0)
[2021-05-10 09:05] LABS: CALCIUM 8.8 mg/dL (8.4-10.2); CREATININE, serum 0.71 mg/dL (0.57-1.11)
--- NOTE | 2021-05-10 09:44 | NUR ---
rounded this am & orders obtained. Labs recieved & resulted. Xrays just completed. Patient was up to the bathroom this am and reports emesis & not being able to keep anything down. She did not have breakfst. She request phenergan. Pharmacy made a dose & given. Patient also request toradol & dilaudid for 9/10 pain. Toradol given, explained to patient why I would not give her both at the same time. Her abdomen soft. Bowels audible. She denies passing flatus. Int. Scds. Will continue to closely monitor.
[2021-05-10 10:04] LABS: BAND 4 % (0-10); EOSINOPHIL 1 % (0-4); LYMPHOCYTE 19 % (20.0-51.0); NEUTROPHILS 73 % (42.0-75.2); PLATELET ESTIMATE NORMAL (NORMAL)
--- NOTE | 2021-05-10 11:07 | NUR ---
Patient resting soundly. Seems more comfortable after toradol. Will let her rest, she reports not sleeping well overnightdue to suppository.
[2021-05-10 12:18] VITALS: BP 128/75; PULSE 80; TEMP 99.2
--- NOTE | 2021-05-10 12:40 | NUR ---
Patient up and showered. She seems in better spirits. She has no interst in lunch. She reports she is afraid to vomit. Sprite & crakers provided per request. Will monitor.
--- NOTE | 2021-05-10 15:09 | NUR ---
Patient requesting to go home. I let her know that will have to be discussed with .
[2021-05-10 15:33] VITALS: BP 121/84; PULSE 79; TEMP 98.8
--- NOTE | 2021-05-10 15:52 | NUR ---
Patient request prn toradol prior to her getting up for a walk. She reports feeling so much better.
--- NOTE | 2021-05-10 17:55 | NUR ---
Patient denies nausea. She is ready to eat. Her boyfiend bringing her pizza. She is feeling much better.
[2021-05-10 19:14] VITALS: BP 127/80; PULSE 83; TEMP 98.3
--- NOTE | 2021-05-10 19:18 | NUR ---
One tab Roxicodone per request. Bedside report to Jaimee Ortiz
--- NOTE | 2021-05-10 19:28 | NUR ---
PT REPORTED HAVING BM. MED HARD PIECES WITH MUCOUS. PT FLUSHED.
--- NOTE | 2021-05-10 19:30 | NUR ---
ENC PT TO AMBULATE IN HALLS TONIGHT.
[2021-05-11 00:28] VITALS: BP 113/69; PULSE 85; TEMP 98.3
[2021-05-11 03:36] VITALS: BP 116/74; PULSE 80; TEMP 97.8
[2021-05-11 08:47] VITALS: BP 114/67; PULSE 86; TEMP 98.3
--- NOTE | 2021-05-11 09:39 | NUR ---
Pt informed this nurse that she would need to leave by 1100 today, as her children are arriving from out of state. Dr. Robertson called, updated on patients brief nausea episode this am, on additional bowel movement and decrease in pain. Orders received. Patient refused breakfast this am, reports she should not have taken her tylenol on an empty stomach. Large BM this am, soft, formed. Denied need for pain medications. Call light within reach.
--- NOTE | 2021-05-11 10:49 | NUR ---
INT removed. Patient showers. Denies pain. Discharge instructions reviewed at this time with pt and boyfriend. Questions answered. Incisions are CDI, no redness or warmth noted. Denies nausea at this time. Getting dressed and will call for w/c for discharge.
--- NOTE | 2021-05-11 11:17 | NUR ---
Pt discharges via w/c and METER/RELAY CRAFTSMAN at 1100. Denies questions or complaints.
== END 2021-05-11 11:00 | disposition home or self-care (01) | DRG 329 ==
LOC: COL.ER 05:18 → SDCO 12:00 → SURG 14:42 → SDCO 14:42 → SURG 14:46
PROVIDERS: Personal Emergency Response Attendant; Surgery; ADMIT Surgery
PROC: 0DQN4ZZ Repair Sigmoid Colon, Percutaneous Endoscopic Approach (ICD-10-PCS; principal; 2021-05-05 10:00)
PROC: 8E0W4CZ Robotic Assisted Procedure of Trunk Region, Percutaneous Endoscopic Approach (ICD-10-PCS; 2021-05-05 10:00)
DX: K91.89 Other postprocedural complications and disorders of digestive system (principal); K63.1 Perforation of intestine (nontraumatic); N39.0 Urinary tract infection, site not specified; K56.7 Ileus, unspecified; Y83.8 Other surgical procedures as the cause of abnormal reaction of the patient, or of later complication, without mention of misadventure at the time of the procedure; F17.210 Nicotine dependence, cigarettes, uncomplicated; Z88.0 Allergy status to penicillin; Z88.2 Allergy status to sulfonamides
CPT/HCPCS: A4314; A9284; C9113; J1170; J1200; J1650; J1885; J1956; J2060; J2405; J2550; J2704; J3010; J3475; J3480; J7030; J7120; Q9967

== ENCOUNTER 2021-05-14 19:43 | Inpatient (IN) | payer MEDICAID ==
[~2021-05-14] VITALS: Ht 167.6 cm; Wt 64.6 kg
[~2021-05-14 19:43] MED LIST changes: +FLAGYL500 MG PO; +LEVAQUIN 5500 MG/TA1 PO; +PROVIGIL200 MG PO
[2021-05-14 22:03] LABS: HEMATOCRIT 37.3 % (37.0-47.0); HEMOGLOBIN 12.3 g/dl (12.5-16.0); MEAN CELL VOLUME 92 fl (80.0-100.0); MEAN CORPUSCULAR HEMOGLOBIN 30 pg (27-31); MEAN CORPUSCULAR HGB CONC 33 g/dl (33.0-37.0); MEAN PLATELET VOLUME 8.4 fl (7.4-10.4); PLATELET COUNT 784 K/mm3 (130-400); RED BLOOD COUNT 4.06 M/mm3 (4.10-5.30); REDCELL DISTRIBUTION WIDTH-CV 13.5 % (11.5-14.5)
[2021-05-14 22:16] LABS: ALBUMIN 3.4 gm/dL (3.5-5.0); BILIRUBIN,TOTAL 0.5 mg/dL (0.2-1.2); CALCIUM 9.1 mg/dL (8.4-10.2); CREATININE, serum 0.78 mg/dL (0.57-1.11); POTASSIUM 3.6 mmol/L (3.5-4.5); TOTAL PROTEIN 7.3 gm/dL (6.2-8.1)
[2021-05-14 22:31] LABS: BAND 7 % (0-10); EOSINOPHIL 1 % (0-4); LYMPHOCYTE 14 % (20.0-51.0); METAMYELOCYTE 2 % (0-0); MYELOCYTE 1 % (0-0); NEUTROPHILS 70 % (42.0-75.2)
[2021-05-14 22:32] LABS: PLATELET ESTIMATE INCREASED (NORMAL)
[2021-05-15] VITALS (10 sets, daily range): BP systolic 106–125; BP diastolic 57–89; PULSE 71–88; TEMP 98.3–98.8
--- NOTE | 2021-05-15 03:03 | NUR ---
PATIENT UP TO FLOOR, A&O. INITIAL ASSESSMENT COMPLETED. PRN DILAUDID STEP 2 GIVEN FOR PAIN. C/O NAUSEA. DR. ABDUL CALLED, ORDERS FOR PRN ZOFRAN AND PHENERGAN, RUBBER OFF DILAUDID, AND NG TUBE ORDERS. 14 FR NG TUBE INSERTED INTO R NARE, TO 65, SECURED TO NOSE. EPIGASTRIC AUSCULTATION TO CHECK PLACEMENT. SET TO LIS, AND 200 ML OF GREEN STOMACH CONTENTS ASPIRATED.
--- NOTE | 2021-05-15 04:06 | NUR ---
20 G IV STARTED TO R FA. DILAUDID FRINGING MACHINE OPERATOR INFUSING INTO NEW IV SITE. PT TEACHING REGARDING USE OF FRINGING MACHINE OPERATOR.
[2021-05-15 08:20] LABS: MEAN CELL VOLUME 91 fl (80.0-100.0); MEAN CORPUSCULAR HEMOGLOBIN 30 pg (27-31); MEAN CORPUSCULAR HGB CONC 33 g/dl (33.0-37.0); MEAN PLATELET VOLUME 8.3 fl (7.4-10.4); PLATELET COUNT 688 K/mm3 (130-400); RED BLOOD COUNT 3.65 M/mm3 (4.10-5.30); REDCELL DISTRIBUTION WIDTH-CV 13.6 % (11.5-14.5)
[2021-05-15 08:24] LABS: HEMATOCRIT 33.2 % (37.0-47.0)
[2021-05-15 08:35] LABS: BILIRUBIN,TOTAL 0.6 mg/dL (0.2-1.2); CALCIUM 8.4 mg/dL (8.4-10.2); CREATININE, serum 0.72 mg/dL (0.57-1.11); POTASSIUM 3.7 mmol/L (3.5-4.5); TOTAL PROTEIN 6.3 gm/dL (6.2-8.1)
--- NOTE | 2021-05-15 08:42 | NUR ---
ASSESSMENT COMPLETED, HAVING PAIN AND HAS MAXED OUT ADMINISTRATIVE DIRECTOR. PT ALSO IS ITCHING ON HER NOSE FROM NG TAPE. TAPE HAS BEEN REPLACED ONCE DURING BOATWRIGHT. DOSE OF BENADRYL GIVEN. PT ABDOMEN IS ROUNDED BUT HAS ACTIVE BOWEL SOUNDS IN ALL QUADRANTS. PT WANTING HER ADMINISTRATIVE DIRECTOR DOSE INCREASED. EDUCATION PROVIDED ON PURPOSE OF ADMINISTRATIVE DIRECTOR. PT ALSO ENCOURGAGED TO AMBULATE BUT REFUCING D/T PAIN.
[2021-05-15 08:44] LABS: EOSINOPHIL 2 % (0-4); LYMPHOCYTE 24 % (20.0-51.0); NEUTROPHILS 63 % (42.0-75.2); PLATELET ESTIMATE INCREASED (NORMAL)
[2021-05-16] VITALS (9 sets, daily range): BP systolic 101–126; BP diastolic 57–79; PULSE 66–86; TEMP 98–99.2
--- NOTE | 2021-05-16 06:52 | NUR ---
Report received from RICHIE Anderson. Patient is sleeping in bed. Call light and bedside table are within reach. Will continue to monitor patient throughout shift.
--- NOTE | 2021-05-16 07:30 | NUR ---
Medication was not loaded in Pyxis and none was ordered by the night nurse so waiting on pharmacy to reload.
[2021-05-16 07:46] LABS: MEAN CELL VOLUME 93 fl (80.0-100.0); MEAN CORPUSCULAR HGB CONC 32 g/dl (33.0-37.0); MEAN PLATELET VOLUME 8.5 fl (7.4-10.4); PLATELET COUNT 713 K/mm3 (130-400); RED BLOOD COUNT 3.23 M/mm3 (4.10-5.30); REDCELL DISTRIBUTION WIDTH-CV 13.5 % (11.5-14.5)
[2021-05-16 08:07] LABS: ALBUMIN 2.8 gm/dL (3.5-5.0); BILIRUBIN,TOTAL 0.8 mg/dL (0.2-1.2); CREATININE, serum 0.62 mg/dL (0.57-1.11); HEMATOCRIT 30.1 % (37.0-47.0); HEMOGLOBIN 9.7 g/dl (12.5-16.0); MEAN CORPUSCULAR HEMOGLOBIN 30 pg (27-31); POTASSIUM 3.7 mmol/L (3.5-4.5); TOTAL PROTEIN 5.7 gm/dL (6.2-8.1)
[2021-05-16 09:18] LABS: BAND 4 % (0-10); BASOPHIL 1 % (0-2); EOSINOPHIL 3 % (0-4); LYMPHOCYTE 23 % (20.0-51.0); MYELOCYTE 1 % (0-0); NEUTROPHILS 60 % (42.0-75.2); PLATELET ESTIMATE INCREASED (NORMAL)
[2021-05-16 09:19] LABS: HYPOCHROMIA 1+
--- NOTE | 2021-05-16 09:28 | NUR ---
Patient refused to take oral medications stating they were making her nausea and makes her vomit. This nurse complied with patient's wishes.
--- NOTE | 2021-05-16 13:18 | NUR ---
Plan is unknown at this time. Patient shares that she is interested in going home with home health care but is unsure on what she may need if she has surgery. Patient indicated that she resides in [place]. Patient reports that she has children who will reside with thier father while she is recovering. PCP is Dr. Deana Newman at [facility]. Patient shares that she has two good friends Jaime and Neel . Patient reports that she uses CPAP at home and had a walker at the last rehab situation. Patient indicated that she has not had support in the past after surgeries and would like to, educated on services through case management. Will follow up for care, provided client with the home health care list.
--- NOTE | 2021-05-16 15:12 | NUR ---
Patient c/o being nausea and requested phenergan but it was too soon to administer so patient asked for Zofran, which this nurse gave her. Patient also stated she was itchy but did not want benadryl at this time but asked this nurse to check on her in about an hour.
--- NOTE | 2021-05-16 16:04 | NUR ---
Patient c/o being nausea and request phenergan because she stated it works better than zofran
--- NOTE | 2021-05-16 18:10 | NUR ---
Patient c/o nausea, dizziness and headache. Patient states she gets dizzy just lying in bed.
--- NOTE | 2021-05-16 20:45 | NUR ---
PT STATED WHENEVER SHE HAS A SURGE OF PAIN, SHE GETS LIGHTHEADED. CONTINUOUS AIR TRAFFIC CONTROL SUPERVISOR RATE TURNED DOWN TO 0.1 /HR PER PT REQUEST SHE THINKS THAT MAY BE CAUSING SOME OF THE LIGHTHEADEDNESS.
[2021-05-17] VITALS (8 sets, daily range): BP systolic 109–138; BP diastolic 66–77; PULSE 70–82; TEMP 98–98.5
--- NOTE | 2021-05-17 05:15 | NUR ---
RESTING QUIETLY/SLEEPING. PHENERGAN FOR NAUSEA. NG DRAINAGE HAS BEEN PINKISH IN COLOR. PT DENIES PASSING GAS.
[2021-05-18] VITALS (8 sets, daily range): BP systolic 112–137; BP diastolic 60–85; PULSE 57–92; TEMP 97.6–99.2
[2021-05-18 06:56] LABS: HEMOGLOBIN 10.7 g/dl (12.5-16.0); MEAN CELL VOLUME 91 fl (80.0-100.0); MEAN CORPUSCULAR HEMOGLOBIN 30 pg (27-31); MEAN CORPUSCULAR HGB CONC 33 g/dl (33.0-37.0); MEAN PLATELET VOLUME 8.6 fl (7.4-10.4); RED BLOOD COUNT 3.58 M/mm3 (4.10-5.30); REDCELL DISTRIBUTION WIDTH-CV 13.4 % (11.5-14.5)
[2021-05-18 06:57] LABS: HEMATOCRIT 32.7 % (37.0-47.0); PLATELET COUNT 819 K/mm3 (130-400)
[2021-05-18 07:05] LABS: ALBUMIN 3.1 gm/dL (3.5-5.0); BILIRUBIN,TOTAL 0.7 mg/dL (0.2-1.2); CALCIUM 8.6 mg/dL (8.4-10.2); CREATININE, serum 0.66 mg/dL (0.57-1.11); MAGNESIUM 1.8 mg/dL (1.6-2.6); PHOSPHOROUS 3.9 mg/dL (2.3-4.7); POTASSIUM 3.6 mmol/L (3.5-4.5); TOTAL PROTEIN 6.3 gm/dL (6.2-8.1)
[2021-05-18 07:57] LABS: BAND 5 % (0-10); BASOPHIL 1 % (0-2); EOSINOPHIL 2 % (0-4); LYMPHOCYTE 23 % (20.0-51.0); METAMYELOCYTE 1 % (0-0); MYELOCYTE 3 % (0-0); NEUTROPHILS 56 % (42.0-75.2); PLATELET ESTIMATE INCREASED (NORMAL)
--- NOTE | 2021-05-18 08:00 | NUR ---
PATIENT IS A&O. VSS. C/O SLIGHT NAUSEA AND ABD GAS PAIN. GAVE PRN IV PHENERGAN PER PATIENT REQUEST. IV DILAUDID BIKE TECHNICIAN INFUSING INTO LEFT FORARM PER ORDERS. ABD IS ROUND, SOFT AND WITH HYPOACTIVE BOWL SOUNDS. NG TO LIS WITH MOD AMOUNTS OF DARK GREEN DRAINAGE NOTED IN NG CANISTER. NPO WITH CHIPS. AM MEDS GIVEN WITH SIPS, TOLERATED WELL. PATIENT ALSO REQUESTING TYLENOL FOR A FORBES, GIVEN. HEAD TO TOE ASSESSMENT COMPLETE, SEE CHARTING. PATIENT INDEPDENT IN ROOM. CALL LIGHT IN REACH. NO OTHER NEEDS AT THIS TIME.
--- NOTE | 2021-05-18 09:25 | NUR ---
AIVS AT BEDSIDE
[2021-05-18 13:00] LABS: CHOLESTEROL 110 mg/dL (0-199); TRIGLYCERIDE 108 mg/dL (0-149)
--- NOTE | 2021-05-18 14:15 | NUR ---
PATIENT GIVEN 120CC OF GASTROGRAPHIN VIA NG PER , SEE ORDERS. NG CLAMPED. PATIENT GIVEN IV ZOFRAN TO HELP PREVENT NAUSEA WITH CONTRAST. DILAUDID TRAVELING SALES REPRESENTATIVE ALSO EMPTY, SYRING CHANGED WITH ANOTHER RN. WILL MONITOR.
--- NOTE | 2021-05-18 15:55 | NUR ---
PATIENT CALLED OUT C/O ABD CRAMPING AND PAIN AND ASKED TO BE PUT BACK ON NG SUCTION. NG BACK TO LIS, NOTED 250CC OF DARK GREEN GASTRIC DRAINAGE IN CANISTER UPON STARTING SUCTION BACK ON. APPLIED WARM BLANKET TO ABD. PATIENT USING DILAUDID PREP ROOM SUPERVISOR FOR PAIN. WILL MONITOR.
--- NOTE | 2021-05-18 19:00 | NUR ---
Bedside shift report received, assumed care for awake overnight counselor. Assessment complete. A&Ox4. VS remain stable. Denies shortness of breath. Pain to abdomen-rating pain 5/10 on pain [id number] SYNTHETIC CLOTH BINDING CUTTER for pain control. Also requesting tylenol. Given per dr order. States she is very nauseated-phenergan given per dr order. Lap sites X6 to abdomen-edges well approximated-healing well. NG to LIS with dark green output to cannister. PICC to right upper arm-TPN infusing @50ml/hr to red port. NS@60ml/hr to purple port. Infusing without difficulty. Plan of care discussed for this shift to include meds as needed/scan of abdomen in AM/calling for questions concerns. Verbalizes understanding/denies needs. Call light in reach. Will monitor.
--- NOTE | 2021-05-18 21:21 | NUR ---
Patient c/o burning in abdomen-states its like heart burn but in her stomach. States she also has noticed increased bloating to her abdomen since taking in the contrast. Patient states the last time she was admitted this also happened and received Maalox with good results. Spoke with Dr Murillo and new order received for Maalox Q4H PRN with clamping of NG tube for 30 minutes post admin.
[2021-05-19] VITALS (7 sets, daily range): BP systolic 111–132; BP diastolic 58–82; PULSE 79–89; TEMP 98–98.8
--- NOTE | 2021-05-19 01:10 | NUR ---
Resting in bed eyes closed. NO s/s of pain noted.
--- NOTE | 2021-05-19 05:00 | NUR ---
Rested better later in the shift. DIlaudid SCREEN MAKING TECHNICIAN continues per dr order. Did receive Zofran x1 and phenergan x2 for nausea. Remained NPO with sips/chips. 650mls out of NG over the shift-green fluid. VS remained stable. Denies current needs. Call light in reach. Will monitor.
[2021-05-19 06:57] LABS: CALCIUM 8.7 mg/dL (8.4-10.2); CREATININE, serum 0.63 mg/dL (0.57-1.11); MAGNESIUM 1.7 mg/dL (1.6-2.6); PHOSPHOROUS 4.5 mg/dL (2.3-4.7); POTASSIUM 3.7 mmol/L (3.5-4.5)
--- NOTE | 2021-05-19 10:42 | NUR ---
PT TO CT THIS AM. RETURNED AND REATTACHED TPN, BUILDING MATERIALS SALES ATTENDANT AND IV FLUIDS. PT IS A/O X3. USING BUILDING MATERIALS SALES ATTENDANT. IV PHENERGAN PER PT REQUEST. PT ABLE TO SLEEP QUIETLY.
[2021-05-19] MEDS ORDERED: XANAX .25M0.25 MG/TA PO (21:10)
[2021-05-20] VITALS (7 sets, daily range): BP systolic 114–123; BP diastolic 54–68; PULSE 94–116; TEMP 99.3–102.7
--- NOTE | 2021-05-20 01:14 | NUR ---
PATIENT UP FROM SURGERY. ALERT AND ORIENTED. STATES SHE IS IN SEVERE PAIN. EPIDURAL IN PLACE. EDUCATION DONE ON EPIDURAL. MIDLINE INCISION WITH GUAZE DRESSING IS CDI. X4 LAP SITES CDI. TPN RECONNECTED. IV FLUIDS AND IV ABX INFUSING. TOLERATED SIPS OF WATER AND ICE CHIPS. NG TO LIS. PRN BENADRYL GIVEN FOR ANXIETY.
[2021-05-20 06:48] LABS: HEMOGLOBIN 11.4 g/dl (12.5-16.0); MEAN CELL VOLUME 92 fl (80.0-100.0); MEAN CORPUSCULAR HEMOGLOBIN 31 pg (27-31); MEAN CORPUSCULAR HGB CONC 33 g/dl (33.0-37.0); MEAN PLATELET VOLUME 8.7 fl (7.4-10.4); PLATELET COUNT 750 K/mm3 (130-400); RED BLOOD COUNT 3.74 M/mm3 (4.10-5.30); REDCELL DISTRIBUTION WIDTH-CV 13.7 % (11.5-14.5)
[2021-05-20 06:52] LABS: HEMATOCRIT 34.5 % (37.0-47.0)
[2021-05-20 06:56] LABS: CREATININE, serum 0.65 mg/dL (0.57-1.11); MAGNESIUM 1.8 mg/dL (1.6-2.6); PHOSPHOROUS 3.5 mg/dL (2.3-4.7); POTASSIUM 3.8 mmol/L (3.5-4.5)
[2021-05-20 08:00] LABS: BAND 9 % (0-10); LYMPHOCYTE 3 % (20.0-51.0); NEUTROPHILS 78 % (42.0-75.2); PLATELET ESTIMATE INCREASED (NORMAL)
--- NOTE | 2021-05-20 10:14 | NUR ---
PT HAS BEEN RUNNING LOW GRADE FEVERS, DR GOULD AWARE, PT REFUSING PO MEDS AT THIS TIME. EPIDURAL RUNNING @ 7MLS WITH 2.25 DEMAND BOULUS. CONSUELO TO BRIGIDO, ELIEL TO CHERYL. PT STABLE AT THIS TIME. ABDOMINAL INCISIONS CDI WITH MIDLINE GAUZE, LAP SITES WITH DERMABOND. CENTRAL LINE WITH TPN AND NS AND INTERMITTANT ABX.
--- NOTE | 2021-05-20 14:15 | NUR ---
charhouse worker followed up with the patient on what HH agency she would like to be established with. Patient verbalizes that she would like to be establishedwith [facility] post dc.
[2021-05-21] VITALS (8 sets, daily range): BP systolic 102–116; BP diastolic 53–63; PULSE 94–111; TEMP 98.8–102.7
--- NOTE | 2021-05-21 00:50 | NUR ---
PATIENT ALERT AND ORIENTED. VSS. NG TUBE DISPLACED, BUT READVANCED BY PATIENT WITH ASSISTANCE OF NURSING STAFF. EPIGASTRIC AUSCULTATION TO CONFIRM PLACEMENT. C/O MODERATE PAIN, EPIDURAL CURRENTLY INFUSING. JULIAN TO DD WITH CLEAR YELLOW URINE OUTPUT. PICC TO R UPPER ARM WITH TPN AND INT ABX INFUSING. MIDLINE WITH GAUZE TAPE CDI. X4 LAPS WITH BANDAIDS CDI.
[2021-05-21 07:01] LABS: HEMOGLOBIN 10.1 g/dl (12.5-16.0); MEAN CELL VOLUME 94 fl (80.0-100.0); MEAN CORPUSCULAR HEMOGLOBIN 30 pg (27-31); MEAN CORPUSCULAR HGB CONC 32 g/dl (33.0-37.0); MEAN PLATELET VOLUME 9.4 fl (7.4-10.4); RED BLOOD COUNT 3.33 M/mm3 (4.10-5.30)
[2021-05-21 07:06] LABS: HEMATOCRIT 31.2 % (37.0-47.0); PLATELET COUNT 553 K/mm3 (130-400)
[2021-05-21 07:14] LABS: CALCIUM 8.1 mg/dL (8.4-10.2); CREATININE, serum 0.58 mg/dL (0.57-1.11); MAGNESIUM 1.9 mg/dL (1.6-2.6); PHOSPHOROUS 2.8 mg/dL (2.3-4.7); POTASSIUM 3.8 mmol/L (3.5-4.5)
[2021-05-21 07:47] LABS: BAND 14 % (0-10); LYMPHOCYTE 3 % (20.0-51.0); NEUTROPHILS 70 % (42.0-75.2); PLATELET ESTIMATE INCREASED (NORMAL)
--- NOTE | 2021-05-21 18:06 | NUR ---
Patient states that she feels better, sat at the edge of bed and stood with nursing assistance. Has been trying to move in the bed. A&Ox4. IV CDI, TPN infusing and patient tolerating well. Epidural in place/intact. NG LIS. Mejia intact. No further needs expressed. Call light within reach
--- NOTE | 2021-05-21 20:00 | NUR ---
PT HAS A VAP. REMINED PT OF HOSPITAL POLICY. PT GAVE IT TO BOYFRIEND.
--- NOTE | 2021-05-21 21:15 | NUR ---
SPOKE WITH DR GOULD REGARDING TEMP 102.4. OK TO GIVE TYLENOL. SEE MAR FOR TYLENOL GIVEN.
[2021-05-22 04:02] VITALS: BP 101/55; PULSE 89; TEMP 99.1
[2021-05-22 06:45] LABS: MEAN CELL VOLUME 94 fl (80.0-100.0); MEAN CORPUSCULAR HGB CONC 32 g/dl (33.0-37.0); MEAN PLATELET VOLUME 9.9 fl (7.4-10.4); PLATELET COUNT 484 K/mm3 (130-400); RED BLOOD COUNT 3.18 M/mm3 (4.10-5.30); REDCELL DISTRIBUTION WIDTH-CV 13.7 % (11.5-14.5)
[2021-05-22 06:48] LABS: HEMOGLOBIN 9.6 g/dl (12.5-16.0); MEAN CORPUSCULAR HEMOGLOBIN 30 pg (27-31)
[2021-05-22 07:17] LABS: CALCIUM 8.4 mg/dL (8.4-10.2); CREATININE, serum 0.57 mg/dL (0.57-1.11); MAGNESIUM 1.9 mg/dL (1.6-2.6); PHOSPHOROUS 4.5 mg/dL (2.3-4.7); POTASSIUM 3.8 mmol/L (3.5-4.5)
[2021-05-22 07:40] VITALS: BP 118/60; PULSE 100; TEMP 100.6
[2021-05-22 07:51] LABS: BAND 2 % (0-10); BASOPHIL 2 % (0-2); EOSINOPHIL 2 % (0-4); LYMPHOCYTE 17 % (20.0-51.0); NEUTROPHILS 64 % (42.0-75.2); PLATELET ESTIMATE INCREASED (NORMAL)
--- NOTE | 2021-05-22 11:17 | NUR ---
Request made for the patient to have a PT/OT eval placed in due to a physical decline over the week.
[2021-05-22 12:12] VITALS: BP 116/58; PULSE 101; TEMP 99.8
--- NOTE | 2021-05-22 14:04 | NUR ---
Vancomycin Follow-up Pharmacy Note Current regimen: Vancomycin 1 gm IV q8h Vancomycin trough: 7.19 Adjustments: Will increase to Vancomycin 1.25 gm IV q8h. Pharmacy will continue to closely monitor and check a Vancomycin trough on 05/23/20.
[2021-05-22 17:06] VITALS: BP 117/55; PULSE 102; TEMP 100.2; TEMP 95
[2021-05-22 19:11] VITALS: BP 135/70; PULSE 87; TEMP 98.1
[2021-05-22 19:43] VITALS: BP 110/47; PULSE 103; TEMP 101.2
--- NOTE | 2021-05-22 20:30 | NUR ---
SEE MAR FOR PHENERGAN AND MAALOX GIVEN. SEE MAR FOR TYLENOL GIVEN FOR TEMP 101.2.
[2021-05-23 00:15] VITALS: BP 112/56; PULSE 94; TEMP 98.8
[2021-05-23 03:46] VITALS: BP 113/60; PULSE 89; TEMP 99.2
--- NOTE | 2021-05-23 06:17 | NUR ---
GAVE ZOFRAN FOR NAUSEA.
[2021-05-23 07:39] VITALS: BP 106/53; PULSE 93; TEMP 98.9
--- NOTE | 2021-05-23 08:00 | NUR ---
Patient laying in bed, A&Ox4. VSS. IV CDI. Denies pain when not moving. Epidural in place, intact. Mejia intact. NPO, nurse instructed patient not to take anything PO. NG LIS. No further needs expressed. Call light within reach
[2021-05-23 10:58] LABS: MEAN CELL VOLUME 94 fl (80.0-100.0); MEAN CORPUSCULAR HGB CONC 32 g/dl (33.0-37.0); MEAN PLATELET VOLUME 9.2 fl (7.4-10.4); PLATELET COUNT 469 K/mm3 (130-400); RED BLOOD COUNT 3.26 M/mm3 (4.10-5.30); REDCELL DISTRIBUTION WIDTH-CV 13.5 % (11.5-14.5)
[2021-05-23 11:12] LABS: ALBUMIN 2.5 gm/dL (3.5-5.0); BILIRUBIN,TOTAL 0.8 mg/dL (0.2-1.2); CALCIUM 8.7 mg/dL (8.4-10.2); CREATININE, serum 0.57 mg/dL (0.57-1.11)
[2021-05-23 11:20] LABS: HEMATOCRIT 30.6 % (37.0-47.0); HEMOGLOBIN 9.8 g/dl (12.5-16.0); MEAN CORPUSCULAR HEMOGLOBIN 30 pg (27-31)
[2021-05-23 11:40] LABS: BAND 2 % (0-10); NEUTROPHILS 76 % (42.0-75.2); PLATELET ESTIMATE INCREASED (NORMAL)
[2021-05-23 11:41] LABS: LYMPHOCYTE 13 % (20.0-51.0)
[2021-05-23 12:05] VITALS: BP 108/57; PULSE 96; TEMP 99.8
[2021-05-23 16:32] VITALS: BP 104/53; PULSE 88; TEMP 99
--- NOTE | 2021-05-23 17:54 | NUR ---
Patient sat at the edge of bed and stood with PT and nursing staff and tolerated well. A&Ox4. VSS, epidural intact. IV CDI, fluids infusing. Pain with movement. Mejia intact. Incision abdomen CDI. Friend at the bedside. NG tube intact. No further needs expressed. Call light within reach
[2021-05-23 19:27] VITALS: BP 109/65; PULSE 87; TEMP 98.8
--- NOTE | 2021-05-23 21:04 | NUR ---
PT HAVING INTERMITTENT ABD CRAMPING. SEE MAR FOR TORRODOL GIVEN.
[2021-05-24] VITALS (7 sets, daily range): BP systolic 105–112; BP diastolic 56–67; PULSE 82–93; TEMP 98.4–99.8
--- NOTE | 2021-05-24 05:24 | NUR ---
PT SLEEPING SOUNDLY LAST FEW HOURS. NO DISTRESS. PT REPORTED EARLIER SHE STILL HAD NOT PASSED ANY FLATUS. NG REMAINS TO LIS WITH DILUTE GREEN RETURN.
--- NOTE | 2021-05-24 06:14 | NUR ---
PHENERGAN GIVEN PER REQUEST FOR NAUSEA
[2021-05-24 07:21] LABS: HEMATOCRIT 27.2 % (37.0-47.0); HEMOGLOBIN 8.9 g/dl (12.5-16.0); MEAN CELL VOLUME 91 fl (80.0-100.0); MEAN CORPUSCULAR HEMOGLOBIN 30 pg (27-31); MEAN CORPUSCULAR HGB CONC 33 g/dl (33.0-37.0); MEAN PLATELET VOLUME 9.7 fl (7.4-10.4); PLATELET COUNT 419 K/mm3 (130-400); RED BLOOD COUNT 2.99 M/mm3 (4.10-5.30); REDCELL DISTRIBUTION WIDTH-CV 13.3 % (11.5-14.5)
[2021-05-24 07:29] LABS: ALBUMIN 2.3 gm/dL (3.5-5.0); BILIRUBIN,TOTAL 0.8 mg/dL (0.2-1.2); CALCIUM 8.3 mg/dL (8.4-10.2); CREATININE, serum 0.56 mg/dL (0.57-1.11); POTASSIUM 3.7 mmol/L (3.5-4.5); TOTAL PROTEIN 5.5 gm/dL (6.2-8.1)
[2021-05-24 07:48] LABS: BAND 1 % (0-10); EOSINOPHIL 4 % (0-4); HYPOCHROMIA 1+; LYMPHOCYTE 15 % (20.0-51.0); MYELOCYTE 1 % (0-0); NEUTROPHILS 71 % (42.0-75.2); PLATELET ESTIMATE INCREASED (NORMAL)
[2021-05-24 07:49] LABS: OVALOCYTES 1+
--- NOTE | 2021-05-24 09:04 | NUR ---
PT ASSESSED. NO COMPLAINTS OF NAUSEA OR DYSPNEA. COMPLAINS OF PAIN AND IS MEDICATED PER MAR. NO OTHER COMPLAINTS OR CONCERNS AT THIS TIME. CALL LIGHT WITHIN REACH
[2021-05-25 03:43] VITALS: BP 113/56; PULSE 84; TEMP 98.7
--- NOTE | 2021-05-25 05:51 | NUR ---
PT HAD SEVERAL LOOSE LIQUID GREEN STOOLS IN THE NIGHT. SLEEPING AT THIS TIME. NO DISTRESS. NG REMAIN CLAMPED.
[2021-05-25 06:27] LABS: BASO # 0.1 K/mm3 (0.0-0.2); BASO % 0.7 % (0.0-2.0); EOS # 0.5 K/mm3 (0.0-0.7); EOS % 6.6 % (0.0-4.0); GRAN # 5.2 K/mm3 (1.4-6.5); GRAN % 63.6 % (42.2-75.2); LYMPH # 1.4 K/mm3 (1.2-3.4); LYMPH % 16.9 % (20.0-51.0); MEAN CELL VOLUME 91 fl (80.0-100.0); MEAN CORPUSCULAR HGB CONC 33 g/dl (33.0-37.0); MEAN PLATELET VOLUME 9.7 fl (7.4-10.4); MONO # 0.9 K/mm3 (0.1-0.6); MONO % 11.5 % (1.7-9.3); PLATELET COUNT 390 K/mm3 (130-400); RED BLOOD COUNT 2.86 M/mm3 (4.10-5.30); REDCELL DISTRIBUTION WIDTH-CV 13.2 % (11.5-14.5)
[2021-05-25 06:37] LABS: HEMOGLOBIN 8.5 g/dl (12.5-16.0); MEAN CORPUSCULAR HEMOGLOBIN 30 pg (27-31)
[2021-05-25 06:41] LABS: CALCIUM 8.1 mg/dL (8.4-10.2); CREATININE, serum 0.56 mg/dL (0.57-1.11); MAGNESIUM 1.8 mg/dL (1.6-2.6); PHOSPHOROUS 3.8 mg/dL (2.3-4.7); POTASSIUM 3.7 mmol/L (3.5-4.5)
--- NOTE | 2021-05-25 06:50 | NUR ---
awake resting in bed, she states she unclamped her NG a short time ago due to nausea, bedside shift report received from RICHIE Hermosillo
[2021-05-25 07:32] VITALS: BP 113/66; PULSE 92; TEMP 98.8
--- NOTE | 2021-05-25 08:20 | NUR ---
resting in bed, up to bedside commode, c/o cramping as she is getting up and moaning and tearful while moving, continues to have NG unclamped as she states she is still having nausea, cannister changed at this time, epidural continues and she uses the VP MARKETING at this time, moves slow to get out of bed and then back into bed, full assessment completed, see interventions for further info, will let her rest for a while and then reevaluate to clamp NG and stop epidural
--- NOTE | 2021-05-25 09:15 | NUR ---
was able to take am medicine and now thinks it is plugged, irrigated with small amount water and now NG is working, spoke with her about shutting off epidural and starting pain pills, states she will have to have phenergan prior to taking any pain pills or she will throw up, will medicate with phenergan, then administer pain pill, then shut off epidural, she verbalizes understanding of this
--- NOTE | 2021-05-25 10:05 | NUR ---
phenergan infused, medicated with roxicoidone 5mg po and toradol 15mg slow IV, the toradol was per her request for abdominal cramping, epidural shut off at this time, was up to bathroom and voided and had mod amount liquid green stool
--- NOTE | 2021-05-25 10:41 | NUR ---
physical therapy was in to work with patient, and then Dr Robertson in to see patient
--- NOTE | 2021-05-25 11:05 | NUR ---
ambulating in baeza with physical therapy with slow steady gait
--- NOTE | 2021-05-25 11:23 | NUR ---
resting in bed, states pain is a 6 now while resting in bed but was worse while up and ambulating
[2021-05-25 11:24] VITALS: BP 115/67; PULSE 85; TEMP 99.5
--- NOTE | 2021-05-25 11:29 | NUR ---
acid conditioning worker collaborated with this patient's attending physician this morning and per his request would like to hold off on a [facility] eval for a few more day's. Surgeon hopeful that one will not be needed. SW will continue to follow on this patient's needs.
--- NOTE | 2021-05-25 11:58 | NUR ---
am hygiene being completed by herself, c/o right sided pain and requesting heating pad, will provide
--- NOTE | 2021-05-25 12:26 | NUR ---
medicated with roxicodone 5mg second tab
--- NOTE | 2021-05-25 12:50 | NUR ---
shift report given to RICHIE Pearl
--- NOTE | 2021-05-25 13:00 | NUR ---
TAKING OVER PATIENT'S CARE. RECEIVED REPORT FROM RICHIE MILES.
--- NOTE | 2021-05-25 14:30 | NUR ---
PATIENT CALLED OUT CRYING AND ASKING FOR PAIN MEDS. IT IS TO EARLY FOR IV TORADOL OR PO DELORIS. PATIENT WAS GIVEN DELORIS LAST AT 1420. EPIDURAL HAS BEEN TURNED OFF SINCE THIS AM. NOTIFIED . GAVE PRN IV DILAUDID. PATIENT REPOSITIONED TO COMFORT. DC'D EPIDURAL PER ORDERS, CATH TIP INTACT AND PATIENT TOLERATED WELL. COVERED EPIDURAL SITE WITH BANDAID. NOTED NG OUTPUT AT 350CC, TODAYS TOTAL SINCE 0700, LIGHT YELLOW-GREEN GASTIC DRAINAGE NOTED. WILL MONITOR.
--- NOTE | 2021-05-25 15:29 | NUR ---
NURSING ENTERED TO HAND SCHEDULED IV ABX. PATIENT RESTING UP IN BED AND APPEARS TO BE WATCHING TV COMFORTABLY. NO NEEDS AT THIS TIME.
[2021-05-25 15:30] VITALS: BP 114/65; PULSE 87; TEMP 98.9
--- NOTE | 2021-05-25 16:25 | NUR ---
PATIENT CALLING OUT FOR MORE PAIN MEDS. NURSING EDUCATED PATIENT ABOUT PRN SCHEDULE OF IV DILAUDID AND P.O. OXYCODONE. PATIENT STATING SHE ONLY "GOT 1 TAB AND SHE NORMALLY GETS 2 TABS". AFTER REVIEWING MAR, PATIENT HAS ONLY BEEN GETTING 1 TAB PER ORDERS. THE PATIENT IS ABLE TO HAVE A REPEAT DOSE 45 MINUTES LATER BUT SHE WAS NOT HAPPY WITH THAT. PATIENT UPSET BY ORDER AND WANTS NURSING TO CALL TO GET ORDER CHANGED TO 2 TABS Q4H. NOTIFIED, SEE ORDERS.
--- NOTE | 2021-05-25 17:07 | NUR ---
GAVE SECOND ROXICODONE TAB, PER ORDER AND GOT ORDERS TO CHANGE NEXT DOSE TO 10MG Q4H. PATIENT ALSO REQUESTING IV TORADOL AND XANAX, GIVEN. PATIENT STATING SHE IS "HURTING TO MUCH TO GET UP AND GO PEE AND NEEDS HER CATH BACK". NURSING EDUCATED PATIENT ABOUT INFECTION RATE AND THE IMPORTANCE OF ACTIVITY. PATIENT INSISTED NURSING CALL , NOTIFIED. NO NEW ORDERS.
--- NOTE | 2021-05-25 18:25 | NUR ---
PATIENT CALLING OUT AGAIN ASKING FOR IV PHENERGAN STATING "ZOFRAN JUST DOESN'T HELP HER NAUSEA". PATIENT STILL CONINUES TO COMPLAIN OF PAIN. NOTIFIED. SEE ORDERS FOR DILAUDID WOODS BOSS. PATIENT VERBALIZED UNDERSTANDING ASKING "IS THERE A CONTINUOUS RATE OR JUST A PUSH DOSE?" NURSING TOLD HER THE ORDER IS FOR PUSH DOSE ONLY. PATIENT STRONGLY INSISTED NURSING CALL AGAIN TO SEE IF SHE COULD GET A CONTINUOUS RATE WELL. SHE ALSO ASKED IF SHE COULD GET SCHEDULED TYLENOL & PHENERGAN ORDERED. NURSING EDUCATED ABOUT THESE MEDS WITH NARCOTIC AND THEY ARE ALREADY ORDERED PRN. PATIENT JUST WANTS TO GET THESE MEDS AUTOMATIC AND ASKS NURSING TO CALL DOCTOR. NOTIFIED. NO CHANGED TO MEDS AT THIS TIME. WOODS BOSS TO REMAIN PUSH DOSE ONLY.
[2021-05-25 20:07] VITALS: BP 129/83; PULSE 80; TEMP 98.8
--- NOTE | 2021-05-25 22:06 | NUR ---
Patient assessed around 2144. Alert and oriented x 4, and able to make needs known. Reports level 7 pain to abdomen. On Dilaudid STAGE DRIVER pump. Reports pain is tolerable at this time. No outward s/sx of pain and discomfort such as facial grimacing and moaning noted at this time. Given PRN Acetaminophen as well as Maalox as requested. PICC to RUE. TPN running per orders. HRR. LS CTA. BSAx4. Reports loose stools, and refused Senokot. NG tube to low intermittent sunction. Patient reports it has been clamped since approximately 3pm. Has been transferring self to bedside commode. Resting in bed with call light within reach at this time.
--- NOTE | 2021-05-25 23:54 | NUR ---
At approximately 2310, patient complained of nausea and requested Phenergan. Patient had NG tube clamped since around 3 pm (according to patient). Given PRN Phenergan, and irrigated NG tube. Able to get approximately 350 ml out of NG tube. New suction canister and tubing placed. Continues on Dilaudid SMALL PRODUCTS I ASSEMBLER pump.
[2021-05-26] VITALS (8 sets, daily range): BP systolic 106–127; BP diastolic 65–80; PULSE 74–87; TEMP 98.2–99.1
--- NOTE | 2021-05-26 06:04 | NUR ---
Continues on Dilaudid MASCARA MOLDER per orders. TPN continues. NG to low intermittent suction. I&O documented. Patient is in bed with call light within reach. Eyes closed, respirations even and unlabored.
--- NOTE | 2021-05-26 10:39 | NUR ---
PT UP INDEPENDENTLY TO VOID. THEN RETURNED TO BED. OT AND PT WORKING WITH PATIENT. AM MEDS GIVEN ORDERED. PRN XANAX AND TORDOL GIVEN.
--- NOTE | 2021-05-26 19:27 | NUR ---
Patient assessed at this time. Alert and oriented, and able to make needs known. Continues to report pain to abdomen. On Dilaudid SPARKER AND PATCHER. Continues to report nausea and upset stomach. Given PRN Phenergan. Patient has NG tube to low intermittent suction. Output is orange and clear. Patient has been drinking orange gatorade. Encouraged to clamp for periods of time to help her stomach get used to not being completely empty. Patient stated that she knows what she is doing and has been controlling her NG tube on her own. LS CTA. HRR. BSAx4. Reports she still has small loose stools, refusing Senokot tonight. Midline incisin to abdomen and lap sites are open to air. Has been going to the bathroom independently. No edema. In bed with call light within reach.
--- NOTE | 2021-05-26 21:27 | NUR ---
Patient given PRN Roxicodone for pain as requested. Also given PRN Maalox.
[2021-05-27 03:54] VITALS: BP 121/71; PULSE 86; TEMP 98.9
--- NOTE | 2021-05-27 05:25 | NUR ---
Continues on Dilaudid ARTIFICIAL MARBLE WORKER per orders. Took PO medications this morning, as well as IV Zofran as requested for nausea. Reports taking PO Roxicodone last night did help her get "a good 3 hours" of sleep. Voices no further questions, needs, or concerns at this time. In bed with call light within reach.
[2021-05-27 06:49] LABS: BASO # 0.1 K/mm3 (0.0-0.2); BASO % 1.1 % (0.0-2.0); EOS # 0.6 K/mm3 (0.0-0.7); EOS % 7.6 % (0.0-4.0); GRAN # 5.3 K/mm3 (1.4-6.5); GRAN % 64.6 % (42.2-75.2); LYMPH # 1.3 K/mm3 (1.2-3.4); LYMPH % 16.4 % (20.0-51.0); MEAN CELL VOLUME 91 fl (80.0-100.0); MEAN CORPUSCULAR HGB CONC 33 g/dl (33.0-37.0); MEAN PLATELET VOLUME 9.2 fl (7.4-10.4); MONO # 0.8 K/mm3 (0.1-0.6); MONO % 9.6 % (1.7-9.3); PLATELET COUNT 434 K/mm3 (130-400); RED BLOOD COUNT 3.07 M/mm3 (4.10-5.30); REDCELL DISTRIBUTION WIDTH-CV 13.2 % (11.5-14.5)
[2021-05-27 06:51] LABS: HEMATOCRIT 27.9 % (37.0-47.0); HEMOGLOBIN 9.1 g/dl (12.5-16.0); MEAN CORPUSCULAR HEMOGLOBIN 30 pg (27-31)
[2021-05-27 07:10] LABS: ALBUMIN 2.6 gm/dL (3.5-5.0); BILIRUBIN,TOTAL 0.5 mg/dL (0.2-1.2); CALCIUM 8.4 mg/dL (8.4-10.2); CREATININE, serum 0.58 mg/dL (0.57-1.11); MAGNESIUM 1.7 mg/dL (1.6-2.6); PHOSPHOROUS 4.8 mg/dL (2.3-4.7); POTASSIUM 3.8 mmol/L (3.5-4.5); TOTAL PROTEIN 6.2 gm/dL (6.2-8.1)
[2021-05-27 07:50] VITALS: BP 125/76; PULSE 90; TEMP 98.9
--- NOTE | 2021-05-27 10:32 | NUR ---
PT VISITING WITH FAMILY. DR GOULD IN TO SEE PT, ADVANCING DIET THIS AM WITH THE GOAL OF DC'ING NG TUBE LATER THIS PM.
[2021-05-27 16:00] VITALS: BP 125/68; PULSE 78; TEMP 98.2
--- NOTE | 2021-05-27 16:41 | NUR ---
NG TUBE DISCONTINUED PER DR. GOULD. PT TOLERATED WELL. CAP CHANGE COMPLETE. NEW TPN HUNG.
[2021-05-27 20:45] VITALS: BP 120/79; PULSE 78; TEMP 98.7
[2021-05-28] VITALS: BP 110/60; PULSE 77; TEMP 98.5
--- NOTE | 2021-05-28 03:25 | NUR ---
PATIENT ALERT AND ORIENTED. REQUESTED PHENERGAN AT START OF SHIFT FOR NAUSEA. X4 LAPS CDI. MIDLINE WITH SMALL AMOUNT OF DRAINAGE. REFUSED ACCUCHECKS AND WILL TALK TO DAY NURSE ABOUT POSSIBILITY OF DC. PICC R UA PATENT AND FLUSHES. IV ABX INFUSING INTERMITTENTLY AND TPN INFUSING TO OTHER PORT. PATIENT CURRENTLY RESTING COMFORTABLY IN BED.
[2021-05-28 04:00] VITALS: BP 108/54; PULSE 74; TEMP 98
--- NOTE | 2021-05-28 06:00 | NUR ---
AZACTAM ABX IS ON BACK ORDER. NOT ADMINISTERED. WILL LET DAY SHIFT KNOW. HOLD ACKNOWLEDGE PLACED ON ORDER.
[2021-05-28 08:00] VITALS: BP 111/72; PULSE 66; TEMP 98.4
[2021-05-28 12:02] VITALS: BP 111/63; PULSE 75; TEMP 98.6
--- NOTE | 2021-05-28 15:37 | NUR ---
[facility] cannot accept the patient due to the patient's payor source having an age restriction of 65. [facility] is not contracted with the patient's insurance. [facility] is not contracted with the patient's insurance. [facility] can accept the patient's insurance and referral faxed over.
[2021-05-28 18:27] VITALS: BP 111/68; PULSE 83; TEMP 98.6
[2021-05-28 20:00] VITALS: BP 105/62; PULSE 82
[2021-05-29] VITALS (9 sets, daily range): BP systolic 94–112; BP diastolic 47–64; PULSE 62–86; TEMP 98.4–98.8
--- NOTE | 2021-05-29 02:13 | NUR ---
Scheduled medications given. Shift assessment performed. Patient given PRN pain medications for abd pain rated a 7/10. RAILWAY SIGNAL ELECTRICIAN pump in use. VSS. Patient A&O. Patient currently resting in bed. No s/s of pain or discomfort at this time. PICC line present on RUE. Flushes with good blood return. Call light in reach.
--- NOTE | 2021-05-29 02:19 | NUR ---
TPN running as ordered. Q6 accuchecks in place.
[2021-05-29 06:23] LABS: MEAN CELL VOLUME 93 fl (80.0-100.0); MEAN CORPUSCULAR HGB CONC 32 g/dl (33.0-37.0); MEAN PLATELET VOLUME 8.9 fl (7.4-10.4); PLATELET COUNT 497 K/mm3 (130-400); RED BLOOD COUNT 3.14 M/mm3 (4.10-5.30); REDCELL DISTRIBUTION WIDTH-CV 13.4 % (11.5-14.5)
[2021-05-29 06:31] LABS: CREATININE, serum 0.62 mg/dL (0.57-1.11); MAGNESIUM 1.9 mg/dL (1.6-2.6); PHOSPHOROUS 5.5 mg/dL (2.3-4.7)
[2021-05-29 06:33] LABS: HEMATOCRIT 29.2 % (37.0-47.0); HEMOGLOBIN 9.4 g/dl (12.5-16.0); MEAN CORPUSCULAR HEMOGLOBIN 30 pg (27-31)
--- NOTE | 2021-05-29 13:06 | NUR ---
Pt reporting she has been having diarrhea. Pt states now she is having stool from vagina as well. MD Marcelo called and notified - CT ordered Freezer Operator called
--- NOTE | 2021-05-29 13:09 | NUR ---
safety tech in route to bean picker pt for CT scan
--- NOTE | 2021-05-29 16:50 | NUR ---
Pt updated on CT results by MD Marcelo
[2021-05-30 04:31] VITALS: BP 108/50; PULSE 72; TEMP 98.3
--- NOTE | 2021-05-30 07:20 | NUR ---
Pt. progressing w/ plan of care. Bedside report complete wit RICHIE Alvares. Pt. denies needs at this time, call light and belongings in reach.
[2021-05-30 09:38] VITALS: BP 109/58; PULSE 82; TEMP 99
--- NOTE | 2021-05-30 10:15 | NUR ---
Pt. progressing w/ plan of care. Pt. was OOB to use the bathroom. Pt. reports pain is tolerable at this time. Plan for pt. to get nausea med then scheduled antibiotic because pt. reports azactam makes her nauseated. Pt. reports loose BM this AM, small amount. Pt. is wearing a pad because she has been having her loose BM output from her vagina per pt. report. Needs addressed, call light and belongings in reach.
[2021-05-30 12:00] VITALS: BP 107/55; PULSE 85; TEMP 98.4
--- NOTE | 2021-05-30 12:46 | NUR ---
Telephone order obtained from Dr. Robertson to stop CNC LATHE MACHINIST pump for this patient.
[2021-05-30 16:00] VITALS: BP 100/52; PULSE 77; TEMP 98.1
[2021-05-30 19:03] VITALS: BP 104/57; PULSE 80; TEMP 98.4
[2021-05-30 23:25] VITALS: BP 100/54; PULSE 79; TEMP 98.5
[2021-05-31 03:12] VITALS: BP 105/50; PULSE 70; TEMP 98.1
--- NOTE | 2021-05-31 06:45 | NUR ---
pain meds requested @[facility] and again this am, phenergan given x1 prior to antibiotics. PICC line patent/secure in AL[place], pt reports continued diarrhea from vagina.
[2021-05-31 07:49] VITALS: BP 106/58; PULSE 82; TEMP 98.5
[2021-05-31 11:29] VITALS: BP 114/65; PULSE 74; TEMP 98.1
[2021-05-31 16:08] VITALS: BP 117/62; PULSE 113; TEMP 99
[2021-05-31 19:16] VITALS: BP 108/61; PULSE 99; TEMP 98.7
[2021-06-01] VITALS (7 sets, daily range): BP systolic 92–118; BP diastolic 46–75; PULSE 70–98; TEMP 98.3–99.2
[2021-06-01 06:54] LABS: MEAN CELL VOLUME 90 fl (80.0-100.0); MEAN CORPUSCULAR HGB CONC 33 g/dl (33.0-37.0); MEAN PLATELET VOLUME 8.7 fl (7.4-10.4); PLATELET COUNT 498 K/mm3 (130-400); RED BLOOD COUNT 3.23 M/mm3 (4.10-5.30); REDCELL DISTRIBUTION WIDTH-CV 13.7 % (11.5-14.5)
[2021-06-01 07:01] LABS: HEMATOCRIT 29.2 % (37.0-47.0); HEMOGLOBIN 9.5 g/dl (12.5-16.0); MEAN CORPUSCULAR HEMOGLOBIN 29 pg (27-31)
[2021-06-01 07:09] LABS: CALCIUM 8.6 mg/dL (8.4-10.2); CREATININE, serum 0.61 mg/dL (0.57-1.11); MAGNESIUM 1.7 mg/dL (1.6-2.6); PHOSPHOROUS 4.4 mg/dL (2.3-4.7); POTASSIUM 3.3 mmol/L (3.5-4.5)
--- NOTE | 2021-06-01 09:25 | NUR ---
Follow-up visit; Patient thanked Surgical Product Sales Consultant for checking on her though declined visit and prayer.
--- NOTE | 2021-06-01 09:36 | NUR ---
Pt. progressing w/ plan of care. Pt. reports she has been asleep and she is just waking up this AM. This RN let pt. know she would be her nurse again for today. Pt. reports she was having loose BMs yesterday, she reports she had "about 40 loose stools yesterday." Pt. repots she has been having green discharge from her vagina. Pt. unable to describe how much discharge. Pt. requesting to receive IV phenergan prior to her AM dose of azactam because azactam causes her nausea. Pt. reports yesterday she was able to eat a couple small bites of food but reported pain after eating. Pt. reports she has been trying to drink ensures. Needs addressed, call light and belongings in reach.
--- NOTE | 2021-06-01 14:46 | NUR ---
Pt. reports she has had multiple BMs this shift. She reports she has went to the toilet at least six times with loose BMs. Pt. requesting if she can get off IV flagyl because it makes her feel like she cannot taste anything. Pt. has not been able to keep anything PO down, she threw up her ensure she drank this AM. PRN pain and anxiety meds have been given. See vitals in chart, low grade temp noted. Dr. Robertson notified via telephone, Dr. Robertson reports he will be in to see her when he is out of surgery. New order obtained for LR IVF.
--- NOTE | 2021-06-01 16:26 | NUR ---
Garment Parts Cutter Hand received consult for patient as she will need two weeks of IV antibiotics, three times a day. SW gave referral to [facility]. SW followed up with patient who would prefer not to go to [place] because this would be difficult for her visitor. Patient is open to home antibiotics if insurance covers it. SW to fax referral to [facility]. YECENIA also contacted Parag at [facility] and gave update.
--- NOTE | 2021-06-01 17:30 | NUR ---
Pt. reports increased anxiety as well as extreme nausea. Dr. Robertson contacted, new orders obtained. See orders.
--- NOTE | 2021-06-01 17:41 | NUR ---
Dr. Robertson spoke w/ Dr. Hunt and Dr. Robertson reports it is OK to d/c flagyl.
--- NOTE | 2021-06-01 17:56 | NUR ---
Pt. ambulated 300 feet around the unit.
--- NOTE | 2021-06-01 19:17 | NUR ---
Pt. feeling better this evening. Dr. Hunt called, Dr. Hunt would like to collect c-diff sample. Oncoming RN Monica notified.
[2021-06-02] VITALS (7 sets, daily range): BP systolic 107–121; BP diastolic 52–73; PULSE 66–101; TEMP 98.4–99.2
--- NOTE | 2021-06-02 06:20 | NUR ---
pt has slept most of this shift, very little po intake, IVF infusing @75 cc/hr, no stools reported, collection hat in toilet, no specimen at this time. no pain meds this shift. 25mg dose of phenergan requested prior to 0200 azactam, no N/V reported.
[2021-06-02 13:35] LABS: CLOSTRIDIUM DIFF A/B NEG; CLOSTRIDIUM DIFF A/B INTERP No C.diff present
--- NOTE | 2021-06-02 13:46 | NUR ---
Pt.'s potassium level was low yesterday. Pt. also requesting for Dr. Robertson to increase her fluids. Dr. Robertson called, reporting the potassium level as well as pt.'s concern. Dr. Robertson reports we will recheck her labs tomorrow. Dr. Robertson also reports he would like to keep the IV fluid rate the way it is. No changes made.
--- NOTE | 2021-06-02 14:23 | NUR ---
Dry Dip Worker spoke to Franca at [facility] who advised they are not in network with patient's insurance. SW faxed referral to [place].
--- NOTE | 2021-06-02 17:00 | NUR ---
Pt. progressing w/ plan of care. Pt. showered today and ambulated w/ physical therapy. Pt. reports feeling fair. Pt. reports she ate and has nausea. Pt.'s pain has been tolerable most of the day but requesting pain med at this time. Plan to medicate pt. w/ nausea and pain medicine. Pt. denies further needs.
--- NOTE | 2021-06-02 22:19 | NUR ---
Patient assessed around 194. Alert and oriented x 4, and able to make needs known. Reports level 6 pain to abdomen. PICC to RUE with IV fluids running per orders. Denies SOB and dyspnea. LS CTA. HRR. Capillary refill less than 3 seconds. Non-tenting skin turgor. BSAx4. [place] to abdomen intact. Lap sites without redness, warmth, swelling, and drainage. No edema. In bed with call light within reach.
[2021-06-03 03:36] VITALS: BP 109/63; PULSE 72; TEMP 98.2
--- NOTE | 2021-06-03 06:11 | NUR ---
Patient given PRN Phenergan as requested for nausea prior to giving IV ABX. Has not requested any pain medication so far this shift. In bed with call light within reach.
[2021-06-03 06:36] LABS: MEAN CELL VOLUME 91 fl (80.0-100.0); MEAN CORPUSCULAR HGB CONC 33 g/dl (33.0-37.0); MEAN PLATELET VOLUME 8.8 fl (7.4-10.4); RED BLOOD COUNT 3.17 M/mm3 (4.10-5.30); REDCELL DISTRIBUTION WIDTH-CV 13.9 % (11.5-14.5)
[2021-06-03 06:47] LABS: CALCIUM 8.4 mg/dL (8.4-10.2); CREATININE, serum 0.56 mg/dL (0.57-1.11); POTASSIUM 3.4 mmol/L (3.5-4.5)
[2021-06-03 06:51] LABS: HEMATOCRIT 28.9 % (37.0-47.0); HEMOGLOBIN 9.5 g/dl (12.5-16.0); MEAN CORPUSCULAR HEMOGLOBIN 30 pg (27-31)
[2021-06-03 06:52] LABS: PLATELET COUNT 374 K/mm3 (130-400)
[2021-06-03 08:26] VITALS: BP 104/60; PULSE 75; TEMP 98.6
--- NOTE | 2021-06-03 11:22 | NUR ---
PT INDEPENDENT IN ROOM. PLAN ON DISCHARGE AFTER ABX COMPLETE LATER THIS WEEK.
[2021-06-03 12:17] VITALS: BP 123/82; PULSE 95; TEMP 98.8
--- NOTE | 2021-06-03 14:00 | NUR ---
Shellfish Shucker spoke with Lindy at [facility] and was advised they are in network with Medicaid. SW spoke with attending physician who advised patient is not medically ready for discharge at this time. Physician advised patient will be done with antibiotics this weekend.
[2021-06-03 16:09] VITALS: BP 108/75; PULSE 90; TEMP 98.3
[2021-06-03 20:18] VITALS: BP 110/59; PULSE 82; TEMP 98.8
--- NOTE | 2021-06-03 22:21 | NUR ---
Patient assessed around 1930. Alert and oriented x 4, and able to make needs known. PICC to RUE with IV fluids running per orders. Voices no questions, needs, or concerns at this time. In bed with call light within reach.
[2021-06-04] VITALS: BP 117/60; PULSE 78; TEMP 99
[2021-06-04 03:27] VITALS: BP 102/55; PULSE 69; TEMP 97.6
--- NOTE | 2021-06-04 05:38 | NUR ---
Patient given PRN Roxicodone, Motrin, and Xanax as requested during around bedtime. Also given PRN Phenergan as requested prior to antibiotic. Voices no questions, needs, or concerns at this time. In bed with call light within reach.
[2021-06-04 08:11] VITALS: BP 101/63; PULSE 79; TEMP 97.8
--- NOTE | 2021-06-04 10:28 | NUR ---
Patient resting in bed. Requesting pain medication & anxiety medication. Medications given per orders. Phenergan per request prior to her IV antibioics due to causing nausea. Patient ate a very light breakfast. Patient prior incisions sites edges well approximated. Picc with IVF per orders. Will monitor.
--- NOTE | 2021-06-04 11:40 | NUR ---
Cannery Tender Engineer provided update to Volodymyr at [facility].
[2021-06-04 12:23] VITALS: BP 120/64; PULSE 85; TEMP 98.5
--- NOTE | 2021-06-04 13:44 | NUR ---
Patient resting in bed. Lunch ordered. Patient has been tearful today, just feeling down. Reports she has no energy for anything. Refused Am therapy. Tried to give support. Will monitor.
[2021-06-04 15:59] VITALS: BP 122/67; PULSE 76; TEMP 98.5
--- NOTE | 2021-06-04 19:11 | NUR ---
Patient resting in bed. Reports being sleepy after phenergan. Continues to request phenergan prior to antibioitc. Pain medication and anxiety medication for bedtime given per request. Pain elevated with activity. Patient had concerns with thrush, diflucan started per . Ivf per orders a via picc. Patient continue to tolerate meals slowly, carrots removed from her allergy list per her request today, so she could have stir kapoor. Her allergy is mild no reaction with carrots. Bedside report to Jaimee Ortiz
--- NOTE | 2021-06-04 20:30 | NUR ---
PT RESTING IN BED. WEEPY TONIGHT. ALLOWED PT TO VERBALIZE CONCERNS. NO OTHER NEEDS AT THIS TIME.
[2021-06-04 20:42] VITALS: BP 117/73; PULSE 86; TEMP 98.1
[2021-06-05] VITALS: BP 105/61; PULSE 48; TEMP 98
--- NOTE | 2021-06-05 02:27 | NUR ---
PT REPORTS HAVING LOOSE LIQUID STOOLS AT LEAST X3 SO FAR.
--- NOTE | 2021-06-05 03:06 | NUR ---
PT HAVING DRY HEAVES. SEE MAR FOR ZOFRAN GIVEN.
[2021-06-05 03:17] VITALS: BP 122/83; PULSE 72; TEMP 98.2
--- NOTE | 2021-06-05 04:00 | NUR ---
VOMITED APPROX 100CC OF UNDIGESTED FOOD. SEE MAR FOR MAALOX GIVEN PER REQ.
--- NOTE | 2021-06-05 06:13 | NUR ---
PT SLEEPING NOW. NO DISTRESS.
[2021-06-05 06:30] LABS: MEAN CELL VOLUME 91 fl (80.0-100.0); MEAN CORPUSCULAR HGB CONC 32 g/dl (33.0-37.0); MEAN PLATELET VOLUME 9.2 fl (7.4-10.4); PLATELET COUNT 348 K/mm3 (130-400); RED BLOOD COUNT 3.01 M/mm3 (4.10-5.30); REDCELL DISTRIBUTION WIDTH-CV 14.1 % (11.5-14.5)
[2021-06-05 06:33] LABS: HEMATOCRIT 27.4 % (37.0-47.0); HEMOGLOBIN 8.8 g/dl (12.5-16.0); MEAN CORPUSCULAR HEMOGLOBIN 29 pg (27-31)
[2021-06-05 06:37] LABS: C-REACTIVE PROTEIN 0.12 mg/dL (0.00-0.50); CALCIUM 8.1 mg/dL (8.4-10.2); CREATININE, serum 0.56 mg/dL (0.57-1.11); MAGNESIUM 1.5 mg/dL (1.6-2.6); POTASSIUM 3.4 mmol/L (3.5-4.5)
[2021-06-05 08:40] VITALS: BP 109/75; PULSE 68; TEMP 97.9
--- NOTE | 2021-06-05 09:20 | NUR ---
PT RESTING IN BED. MORNING MEDICATIONS GIVEN. SHIFT ASSESSMENT COMPLETED. REPORTS MODERATE ABDOMINAL PAIN AT REST. LAP SITES AND MIDLINE INCISION C/D/I. REPORTS MULTIPLE EPISODES OF DIARRHEA AND GREEN VAGINAL DISCHARGE. WILL CONTINUE TO MONITOR.
[2021-06-05 12:07] VITALS: BP 117/71; PULSE 97; TEMP 98.6
[2021-06-05 16:25] VITALS: BP 117/70; PULSE 71; TEMP 97.9
--- NOTE | 2021-06-05 18:32 | NUR ---
PT FEELING NAUSEOUS THIS EVENING, PRN MEDICATION GIVEN PER JUL. REPORTS MODERATE PAIN TO ABDOMEN.
[2021-06-05 19:59] VITALS: BP 115/70; PULSE 90; TEMP 98.5
[2021-06-06 00:12] VITALS: BP 129/76; PULSE 78; TEMP 98.5
--- NOTE | 2021-06-06 01:55 | NUR ---
PATIENT DOING WELL TONIGHT. REPEATED C/O "DIZZINESS FROM MAGNESIUM" PRN PHENERGAN GIVEN. DENIES NEED FOR PAIN MEDICATION. REFUSED XANAX AT THIS TIME. TOLERATED HALF HER SANDWICH FOR DINNER BUT WANTS TO KEEP TRAY INCASE SHE WANTS MORE. PICC TO R UPPER ARM WITH IVF INFUSING AND INT IV ABX. CURRENTLY RESTING IN BED.
[2021-06-06 04:15] VITALS: BP 114/57; PULSE 100; TEMP 98.1
[2021-06-06 07:46] VITALS: BP 108/56; PULSE 79; TEMP 98
[2021-06-06 12:00] VITALS: BP 120/72; PULSE 90; TEMP 98.4
--- NOTE | 2021-06-06 13:00 | NUR ---
RN TRANSPORTED PATIENT VIA DOWNSTAIRS TO VISIT WITH CHILDREN. RN STAYED WITH PATIENT DURING VISIT. PATIENT ALSO INFORMED RN THAT SHE HAS FEELING OF FULLNESS AFTER EATING A SMALL AMOUNT OF FOOD AND THIS WAS HER FIRST SYMPTOM WHEN SHE HAS HER SBO PREVIOUSLY.
[2021-06-06 15:04] VITALS: BP 126/77; PULSE 87; TEMP 98.6
[2021-06-06 19:33] VITALS: BP 112/59; PULSE 60; TEMP 97.9
--- NOTE | 2021-06-06 20:50 | NUR ---
pt sleeping at this time.
--- NOTE | 2021-06-06 22:51 | NUR ---
PT CONTINUES SLEEPING. NO DISTRESS.
[2021-06-07] VITALS (7 sets, daily range): BP systolic 98–115; BP diastolic 47–77; PULSE 60–94; TEMP 97.8–98.5
--- NOTE | 2021-06-07 00:30 | NUR ---
HAND CARVER IN ROOM TO TAKE VS. PT VERY RUDE AND RETURNS TO SLEEP.
--- NOTE | 2021-06-07 02:13 | NUR ---
PT HAS BEEN VERY SLEEPY THIS SHIFT. NO COMPLAINTS. NO DISTRESS.
--- NOTE | 2021-06-07 03:36 | NUR ---
PT CONTINUES SLEPPING. NO DISTRESS.
--- NOTE | 2021-06-07 14:22 | NUR ---
PT STATES SHE HAS NOT HAD A BM SINCE Tuesday06/05/21 MORNING. PATIENT ALSO REPORTS FEELING OF FULLNESS. THIS WAS ALL REPORTED TO ID , DR. FELIX.
--- NOTE | 2021-06-07 21:10 | NUR ---
PT RESTING IN BED. STILL EATING EVENING MEAL. PT REPORTS HAS NOT PASSED FLATUS OR HAD BM SINCE TUESDAY. NO NAUSEA AT THIS TIME. SEE MAR FOR PAIN AND ANXIETY MEDS GIVEN. PT UP INDEPENDENTLY IN ROOM . CALL LIGHT IN REACH.
--- NOTE | 2021-06-07 21:24 | NUR ---
PT HAVING UNDIGESTED FOOD SMALL EMESIS. SEE MAR FOR ZOFRAN GIVEN.
--- NOTE | 2021-06-07 22:05 | NUR ---
PT VOMITED APPROX 250CC OF UNDIGESTED FOOD. SEE MAR FOR PHENERGAN GIVEN.
[2021-06-08] VITALS (7 sets, daily range): BP systolic 99–118; BP diastolic 51–70; PULSE 68–89; TEMP 97.8–98.6
--- NOTE | 2021-06-08 05:06 | NUR ---
PT HAS HAD NO FURTHER EMESIS TONIGHT. HAS BEEN SLEEPING.
[2021-06-08 06:30] LABS: BASO # 0.1 K/mm3 (0.0-0.2); BASO % 1.4 % (0.0-2.0); EOS # 0.3 K/mm3 (0.0-0.7); EOS % 5.1 % (0.0-4.0); GRAN # 2.8 K/mm3 (1.4-6.5); GRAN % 48.3 % (42.2-75.2); LYMPH # 2.1 K/mm3 (1.2-3.4); LYMPH % 35.6 % (20.0-51.0); MEAN CELL VOLUME 91 fl (80.0-100.0); MEAN CORPUSCULAR HGB CONC 33 g/dl (33.0-37.0); MEAN PLATELET VOLUME 9.5 fl (7.4-10.4); MONO # 0.5 K/mm3 (0.1-0.6); MONO % 8.9 % (1.7-9.3); PLATELET COUNT 300 K/mm3 (130-400); RED BLOOD COUNT 3.22 M/mm3 (4.10-5.30); REDCELL DISTRIBUTION WIDTH-CV 14.3 % (11.5-14.5)
[2021-06-08 06:44] LABS: HEMATOCRIT 29.2 % (37.0-47.0); HEMOGLOBIN 9.6 g/dl (12.5-16.0); MEAN CORPUSCULAR HEMOGLOBIN 30 pg (27-31)
[2021-06-08 06:48] LABS: ALBUMIN 2.9 gm/dL (3.5-5.0); BILIRUBIN,TOTAL 0.3 mg/dL (0.2-1.2); CALCIUM 8.5 mg/dL (8.4-10.2); CREATININE, serum 0.62 mg/dL (0.57-1.11); POTASSIUM 3.5 mmol/L (3.5-4.5); TOTAL PROTEIN 5.7 gm/dL (6.2-8.1)
--- NOTE | 2021-06-08 09:17 | NUR ---
Pt sitting up in bed. CT in discussing with pt about the contrast. Pt has ordered breakfast, offered to call and have them bring it after CT, but she refused and stated that she doesn't mind eating it cold. Pt did not have any complaints of nausea, but requested phenergan "just in case." Pt rating her pain 7/10, but states "this is always how I feel." No other needs verbalized, call light within reach
--- NOTE | 2021-06-08 10:09 | NUR ---
Pt off the floor for CT scan
--- NOTE | 2021-06-08 11:20 | NUR ---
Pt has returned from having CT done. Pt requested Xanax, roxicodone, mortrin and phenergan. Pt has ate and appears to be tolerating a general diet. She has eaten approximately 50% of it. Pt did not complain of nausea before the CT, she stated that she was wanting phenergan to keep her from getting sick. I do not feel comfortable giving the roxicodone, xanax and phenergan, physician notified.
--- NOTE | 2021-06-08 12:30 | NUR ---
Pt requested some phenergan for nausea. She then also requested some coffee with hot chocolate mix as well as popcicle
--- NOTE | 2021-06-08 15:00 | NUR ---
Pt up walking with PT
--- NOTE | 2021-06-08 21:17 | NUR ---
PATIENT DOING WELL TONIGHT. C/O MODERATE PAIN 7/10 AND PRN 5 MG DELORIS GIVEN. C/O ANXIETY AND PRN XANAX GIVEN. C/0 NAUSEA AFTER EATING SECOND DINNER AND PRN PO PHENERGAN GIVEN. ABD SITES ARE CDI AND OPEN TO AIR. PICC TO ALINA PATENT, PURPLE LINE FLUSHES, RED LINE WAS VERY HARD FLUSH. C/O GAS PAIN, ENCOURAGED PATIENT TO WALK IN THE HALLS. PATIENT RESTING IN BED, CALL LIGHT WITHIN REACH.
[2021-06-09 03:34] VITALS: BP 105/57; PULSE 75; TEMP 98.3
[2021-06-09 08:00] VITALS: BP 95/42; PULSE 79; TEMP 98.7
--- NOTE | 2021-06-09 11:10 | NUR ---
PT REPORTING LOOSE STOOLS. REFUSING AM MEDS AND BREAKFAST AT THIS TIME. MID LINE INCISION CDI.
[2021-06-09 11:33] VITALS: BP 110/69; PULSE 91; TEMP 98.6
[2021-06-09] MEDS ORDERED: ROXICODONE 55 MG/TAB PO (12:51)
[2021-06-09] MEDS ORDERED: PROMETHAZINE12.5 M5 PO (12:52)
[2021-06-09 15:25] VITALS: BP 110/50; PULSE 107; TEMP 98.9
--- NOTE | 2021-06-09 17:35 | NUR ---
DISCHARGE INSTRUCTIONS REVIEWED AND PICC LINE INSTRUCTIONS REVIEWED WITH PT. PT VERBALIZED UNDERSTANDING. PT LEFT UNIT PER WHEEL CHAIR.
== END 2021-06-09 17:41 | disposition home or self-care (01) | DRG 330 ==
LOC: COL.ER 19:43 → SURG 23:36
PROVIDERS: Internal Medicine Infectious Disease; Student in an Organized Health Care Education/Training Program; Surgery; ADMIT Surgery
PROC: 02HV33Z Insertion of Infusion Device into Superior Vena Cava, Percutaneous Approach (ICD-10-PCS; 2021-05-18)
PROC: 0WJG4ZZ Inspection of Peritoneal Cavity, Percutaneous Endoscopic Approach (ICD-10-PCS; 2021-05-19)
PROC: 0DB80ZZ Excision of Small Intestine, Open Approach (ICD-10-PCS; principal; 2021-05-19 15:45)
PROC: 0DJD4ZZ Inspection of Lower Intestinal Tract, Percutaneous Endoscopic Approach (ICD-10-PCS; 2021-05-19 15:45)
PROC: 0DNW4ZZ Release Peritoneum, Percutaneous Endoscopic Approach (ICD-10-PCS; 2021-05-19 15:45)
DX: K91.30 Postprocedural intestinal obstruction, unspecified as to partial versus complete (principal); E44.0 Moderate protein-calorie malnutrition; K52.1 Toxic gastroenteritis and colitis; F17.210 Nicotine dependence, cigarettes, uncomplicated; N73.6 Female pelvic peritoneal adhesions (postinfective); N73.9 Female pelvic inflammatory disease, unspecified; T50.8X5A Adverse effect of diagnostic agents, initial encounter; B96.20 Unspecified Escherichia coli [E. coli] as the cause of diseases classified elsewhere; Y83.8 Other surgical procedures as the cause of abnormal reaction of the patient, or of later complication, without mention of misadventure at the time of the procedure; Z68.23 Body mass index [BMI] 23.0-23.9, adult; Z88.0 Allergy status to penicillin; Z88.2 Allergy status to sulfonamides
CPT/HCPCS: A4314; A9284; C1751; C9113; J0171; J0610; J0744; J1100; J1170; J1200; J1450; J1650; J1885; J1956; J2250; J2370; J2405; J2550; J2704; J2795; J3010; J3370; J3475; J3480; J7030; J7050; J7120; J7131; Q9967

== ENCOUNTER → 2021-06-15 | Outpatient (RCR) | payer MEDICAID ==
[~2021-06-15] VITALS: Ht 167.6 cm; Wt 63.2 kg
[~2021-06-15] MED LIST changes: +D3-5050000 IU PO; -INFANTS AQU400 IU/ML; +PROMETHAZINE12.5 M5 PO; +XANAX .25M0.25 MG/TA PO
[2021-06-15 10:11] VITALS: BP 116/79; PULSE 92; TEMP 98.8
== END ==
LOC: EUO 09:00 → EDSTATUS 09:00 → EUO 09:57
DX: Z45.2 Encounter for adjustment and management of vascular access device (principal)

== ENCOUNTER → 2021-06-16 | Outpatient (CLI) | payer MEDICAID ==
--- NOTE | 2021-06-16 13:15 | NUR ---
Here for lab draw. PICC intact right upper arm with port flushed with 5ml normal saline. discard 10ml, lab drawn. port flushed with 20 ml normal saline. other port flushed with 10ml normal saline. no signs or symptoms of IV complications noted.
[2021-06-16 13:28] LABS: HEMOGLOBIN 11.3 g/dl (12.5-16.0); MEAN CELL VOLUME 92 fl (80.0-100.0); MEAN CORPUSCULAR HEMOGLOBIN 30 pg (27-31); MEAN CORPUSCULAR HGB CONC 33 g/dl (33.0-37.0); MEAN PLATELET VOLUME 9.2 fl (7.4-10.4); PLATELET COUNT 280 K/mm3 (130-400); RED BLOOD COUNT 3.78 M/mm3 (4.10-5.30); REDCELL DISTRIBUTION WIDTH-CV 13.8 % (11.5-14.5)
[2021-06-16 13:31] LABS: HEMATOCRIT 34.6 % (37.0-47.0)
[2021-06-16 13:41] LABS: ALBUMIN 3.7 gm/dL (3.5-5.0); BILIRUBIN,TOTAL 0.4 mg/dL (0.2-1.2); CALCIUM 8.8 mg/dL (8.4-10.2); CREATININE, serum 0.62 mg/dL (0.57-1.11); POTASSIUM 3.8 mmol/L (3.5-4.5)
[2021-06-16 14:00] LABS: THYROID STIMULATING HORMONE 0.705 uIU/mL (0.350-4.940)
== END ==
LOC: COL.LAB 12:43
PROVIDERS: Surgery
DX: R10.9 Unspecified abdominal pain (principal)

== ENCOUNTER 2021-06-18 08:00 | Outpatient (CLI) | payer MEDICAID ==
[2021-06-18 08:27] VITALS: BP 111/67; PULSE 85; TEMP 98.3
== END 2021-06-18 09:52 ==
LOC: EUO 08:00
DX: Z45.2 Encounter for adjustment and management of vascular access device (principal)

== ENCOUNTER 2021-07-07 14:56 | Outpatient (RCR) | payer MEDICAID ==
[2021-07-09 13:36] LABS: CLOSTRIDIUM DIFF A/B NEG; CLOSTRIDIUM DIFF A/B INTERP NonToxigenic C.diff
[2021-07-14] MEDS ORDERED: ROXICODONE 55 MG/TAB PO (12:13)
== END 2021-07-13 ==
LOC: WSPT
PROVIDERS: Surgery
DX: R19.7 Diarrhea, unspecified (principal); Z90.49 Acquired absence of other specified parts of digestive tract; Z98.890 Other specified postprocedural states

== ENCOUNTER 2021-07-13 18:06 | Emergency (ER) | payer MEDICAID ==
[~2021-07-13] VITALS: Ht 165.1 cm; Wt 59.1 kg
[2021-07-13 18:17] VITALS: TEMP 97
[2021-07-13 18:57] LABS: BASO % 0.6 % (0.0-2.0); EOS # 0.1 K/mm3 (0.0-0.7); EOS % 1.4 % (0.0-4.0); GRAN # 3.8 K/mm3 (1.4-6.5); GRAN % 60.6 % (42.2-75.2); HEMATOCRIT 37.4 % (37.0-47.0); HEMOGLOBIN 12.2 g/dl (12.5-16.0); LYMPH # 1.8 K/mm3 (1.2-3.4); MEAN CELL VOLUME 91 fl (80.0-100.0); MEAN CORPUSCULAR HEMOGLOBIN 30 pg (27-31); MEAN CORPUSCULAR HGB CONC 33 g/dl (33.0-37.0); MEAN PLATELET VOLUME 8.7 fl (7.4-10.4); MONO # 0.5 K/mm3 (0.1-0.6); MONO % 7.9 % (1.7-9.3); PLATELET COUNT 278 K/mm3 (130-400); REDCELL DISTRIBUTION WIDTH-CV 13.2 % (11.5-14.5)
[2021-07-13 19:15] LABS: ALANINE AMINOTRANSFERASE 11 U/L (0-55); ALBUMIN 4.1 gm/dL (3.5-5.0); ALKALINE PHOSPHATASE 47 U/L (40-150); ANION GAP 7 mmol/L (7-16); AST,SGOT 11 U/L (5-34); BILIRUBIN,TOTAL 0.6 mg/dL (0.2-1.2); BLOOD UREA NITROGEN 8 mg/dL (7-19); CALCIUM 9.3 mg/dL (8.4-10.2); CARBON DIOXIDE 24 mmol/L (22-29); CHLORIDE 106 mmol/L (98-107); CREATININE, serum 0.71 mg/dL (0.57-1.11); GLUCOSE 97 mg/dL (70-99); POTASSIUM 3.5 mmol/L (3.5-4.5); SODIUM 137 mmol/L (136-145); TOTAL PROTEIN 6.9 gm/dL (6.2-8.1)
[2021-07-13 19:35] VITALS: BP 120/86; PULSE 88
[2021-07-13 19:35] LABS: TSH w REFLEX 0.354 uIU/mL (0.350-4.940)
[2021-07-13 19:40] LABS: COLLECTION METHOD CLEAN CATCH
[2021-07-13 19:45] LABS: PH 7 (5-8); URINE APPEARANCE Clear (CLEAR/HAZY); URINE BACTERIA None Seen /hpf (NONE SEEN); URINE BILIRUBIN Negative (NEGATIVE); URINE BLOOD Negative (NEGATIVE); URINE COLOR Straw (YELLOW); URINE GLUCOSE Negative (NEGATIVE); URINE KETONE Negative (NEGATIVE); URINE LEUKOCYTE ESTERASE Negative (NEGATIVE); URINE NITRATE Negative (NEGATIVE); URINE PROTEIN(semi-quant) Negative (NEGATIVE); URINE RBC None Seen /hpf (0-2); URINE UROBILINOGEN Negative (NEGATIVE)
[2021-07-13 19:48] LABS: TROPONIN-I < 0.010 ng/mL (0.00-0.033)
[2021-07-13 19:48] LABS: SQUAMOUS EPITHELIAL 0-2 /hpf (0-10)
[2021-07-14] MEDS ORDERED: ROXICODONE 55 MG/TAB PO (12:13)
== END 2021-07-13 19:50 | disposition home or self-care (01) ==
LOC: COL.ER 18:06
PROVIDERS: Emergency Medicine
DX: R55 Syncope and collapse (principal)

== ENCOUNTER 2021-07-21 18:09 | Observation (INO) | payer MEDICAID ==
[~2021-07-21] VITALS: Ht 165.1 cm; Wt 59.0 kg
[2021-07-21 18:51] LABS: BASO # 0.1 K/mm3 (0.0-0.2); BASO % 0.6 % (0.0-2.0); EOS # 0.2 K/mm3 (0.0-0.7); EOS % 1.9 % (0.0-4.0); GRAN # 5.5 K/mm3 (1.4-6.5); GRAN % 56.6 % (42.2-75.2); HEMATOCRIT 35.9 % (37.0-47.0); LYMPH # 3.3 K/mm3 (1.2-3.4); LYMPH % 33.8 % (20.0-51.0); MEAN CELL VOLUME 91 fl (80.0-100.0); MEAN CORPUSCULAR HEMOGLOBIN 30 pg (27-31); MEAN CORPUSCULAR HGB CONC 33 g/dl (33.0-37.0); MEAN PLATELET VOLUME 9.3 fl (7.4-10.4); MONO # 0.7 K/mm3 (0.1-0.6); MONO % 6.8 % (1.7-9.3); PLATELET COUNT 336 K/mm3 (130-400); RED BLOOD COUNT 3.96 M/mm3 (4.10-5.30); REDCELL DISTRIBUTION WIDTH-CV 13.2 % (11.5-14.5)
[2021-07-21 18:58] LABS: COLLECTION METHOD CLEAN CATCH
[2021-07-21 19:05] LABS: MUCOUS Present (NOT PRESENT); PH 6 (5-8); SQUAMOUS EPITHELIAL 0-2 /hpf (0-10); URINE APPEARANCE Clear (CLEAR/HAZY); URINE BACTERIA None Seen /hpf (NONE SEEN); URINE BILIRUBIN Negative (NEGATIVE); URINE BLOOD Negative (NEGATIVE); URINE COLOR Yellow (YELLOW); URINE GLUCOSE Negative (NEGATIVE); URINE KETONE Negative (NEGATIVE); URINE LEUKOCYTE ESTERASE Negative (NEGATIVE); URINE NITRATE Negative (NEGATIVE); URINE PROTEIN(semi-quant) Negative (NEGATIVE); URINE RBC 0-2 /hpf (0-2); URINE UROBILINOGEN Negative (NEGATIVE)
[2021-07-21 19:05] LABS: BILIRUBIN,TOTAL 0.3 mg/dL (0.2-1.2); C-REACTIVE PROTEIN 0.08 mg/dL (0.00-0.50); CALCIUM 8.4 mg/dL (8.4-10.2); CREATININE, serum 0.69 mg/dL (0.57-1.11); POTASSIUM 3.8 mmol/L (3.5-4.5); TOTAL PROTEIN 6.8 gm/dL (6.2-8.1)
--- NOTE | 2021-07-21 21:50 | NUR ---
Pt wheeled to 221 from ER. Pt ambulatory to bed standby assist. VS taken. Pt reports pain since her last surgery in may on her left side of abdomen but states today pain changed to her right RLQ with a constant dull pain that has moments every 10 mins or so of sharp pain that radiates to her lower back. IVF running to left wrist IV. Right forearm IV infiltrated when pt arrived on this floor so removed at this time. Pt request something to eat and states "I am starving." Ailey and water given per general diet orders. Plan of care explained. Assessment completed. Call light within reach.
[2021-07-21 21:55] VITALS: BP 103/57; PULSE 68; TEMP 98.6
[2021-07-21] MEDS ORDERED: XANAX 0.5MG0.5 MG PO (22:12)
[2021-07-21] MEDS ORDERED: VALTREX1 GM PO (22:15)
[2021-07-21] MEDS ORDERED: VANCOCIN H125 MG/CAP PO (22:17)
[2021-07-21] MEDS ORDERED: PRILOTC PO (22:18)
[2021-07-21] MEDS ORDERED: WELLBUTRIN XL150 MG PO (22:19)
[2021-07-22] VITALS (7 sets, daily range): BP systolic 93–133; BP diastolic 43–84; PULSE 71–90; TEMP 98.2–98.7
--- NOTE | 2021-07-22 12:15 | NUR ---
8083 DR GOULD CALLED RE: PT NEEDING HER HOME AM MEDS, PT IS OUT OF CONTROL, THIS NURSE TOLD PT I WOULD GET A HOLD OF DR GOULD ABOUT HER AM HOME MEDS. DR GOULD CALLED AND THIS NURSE ORDERED AND GAVE PTS HOME MEDS.
--- NOTE | 2021-07-22 12:17 | NUR ---
1120 PT NOW IS C/O A HEADACHE AND WANTS SOME TYLENOL. AND HER ANXIETY IS BETTER NOW AND DR GOULD CAN COME BACK AND SEE HER IF HE WANTS TO. THIS NURSE CALLED DR GOULD AND GOT AN ORDER FOR TYLENOL 500-1000MG Q 6HRS PRN PAIN. AND THIS NURSE LET DR GOULD KNOW HE CAN COME SEE HER AGAIN IF HE WANTS.
--- NOTE | 2021-07-22 16:33 | NUR ---
1200 DR GOULD RETURNED TO BEDSIDE, TO TALK WITH PT THIS NURSE AT BEDSIDE.
--- NOTE | 2021-07-22 16:35 | NUR ---
1300 DR JONES IS @ BEDSIDE, SEEING PT RE: HER PAIN.
--- NOTE | 2021-07-22 16:38 | NUR ---
1515 PT FEELING SO GOOD SHE IS WALKING LAPS IN THE [address]. 1545 PT WALK 9 LAPS IN HALLWAY BUT WAS GOING TO DO 15 BUT PAIN IS BACK AND REAL BAD NOW.
--- NOTE | 2021-07-22 16:39 | NUR ---
1600 DR GOULD CALLED TO CHECK ON PT AND SEE HOW HER PAIN WAS, GIVE HIM AN UPDATE ON WHEN SHE HAS TAKEN THE IV AND PO PAIN MEDS. HE STATES SHE PROBABLY NEEDS TO STAY TONIGHT IF TAKING THAT MUCH IV PAIN MEDICINE. TRY TO REDUCE THE AMT OF IV PAIN MED SHE IS TAKING.
--- NOTE | 2021-07-22 19:15 | NUR ---
Report called and given to RICHIE Patten. IV in left forearm capped. Pt transferred to room 350 by wheelchair with belongings.
--- NOTE | 2021-07-23 01:12 | NUR ---
PATIENT UP TO ROOM 350. ALERT AND ORIENTED. C/O MODERATE PAIN AND PRN DILAUDID WAS GIVEN. IV TO L FA WAS BURNING, NEW ONE WAS STARTED TO L FA BY CITLALY QUIROZ AND IVF ARE INFUSING AT 125 ML/HR. PATIENT HAS A STRICT SCHEDULE FOR WHEN SHE WANTS HER PILLS. SEE EMAR FOR TIMES GIVEN. TOLERATING GENERAL DIET WELL WITH PHENERGAN AND ZOFRAN PRN FOR NAUSEA. INDEPENDENT IN ROOM AND HAS BEEN AMBULATING TO BATHROOM WITHOUT ISSUE. STATES SHE HAS A HEADACHE AND TORADOL WAS GIVEN ALONG WITH ICE PACKS FOR HEAD AND NECK. NO OTHER NEEDS AT THIS TIME PER PATIENT SHE IS GOING TO TRY AND GET SOME SLEEP.
[2021-07-23 03:29] VITALS: BP 105/50; PULSE 81; TEMP 98.2
[2021-07-23 07:23] VITALS: BP 121/61; PULSE 81; TEMP 97.2
[2021-07-23] MEDS ORDERED: TORADOL 10MG TA10 MG PO (10:01)
[2021-07-23] MEDS ORDERED: DIFLUCAN150 MG PO (10:04)
--- NOTE | 2021-07-23 11:12 | NUR ---
Initial visit; Patient thanked Salesperson [employer] for spending time and being patient with her. Patient is experiencing a lapse of chaparro in God due to her continuous ill health. Salesperson [employer] listened and mentioned that patient wouldn't be concerned about her chaparro if she wasn't a believer. Salesperson [employer]ist [employer] suggested a few ways to meditate on short prayers asking God to help and stop blaming herself for her loss of chaparro.
[2021-07-23] MEDS ORDERED: ROXICODONE 55 MG/TAB PO (11:53)
[2021-07-23 12:00] VITALS: BP 126/88; PULSE 94; TEMP 98.4
--- NOTE | 2021-07-23 14:20 | NUR ---
PATIENT'S IV REMOVED, CATHETER INTACT. DISCHARGE INSTRUCTIONS REVIEWED, PATIENT VERBALIZED UNDERSTANDING. DISCHARGE CRITERIA MET. PATIENT SIGNED DISCHARGE INSTRUCTIONS. PATIENT CHANGED CLOTHES AND PREPARED TO LEAVE WITH SIGNIFICANT OTHER.
== END 2021-07-23 14:47 | disposition home or self-care (01) ==
LOC: COL.ER → EDBD 18:09 → OB 20:27 → SURG 07-22 20:09
PROVIDERS: Nurse Practitioner; ADMIT Surgery
DX: R10.31 Right lower quadrant pain (principal); N83.202 Unspecified ovarian cyst, left side; Z87.891 Personal history of nicotine dependence; Z90.710 Acquired absence of both cervix and uterus; Z90.721 Acquired absence of ovaries, unilateral
CPT/HCPCS: G0378; J1170; J1885; J2405; J2550; J2765; J7030; Q9967

== ENCOUNTER → 2021-08-13 | Outpatient (RCR) | payer MEDICAID ==
[~2021-08-13] MED LIST changes: +PRILOTC PO; +TORADOL 10MG TA10 MG PO; +VALTREX1 GM PO; +VANCOCIN H125 MG/CAP PO; +WELLBUTRIN XL150 MG PO; +XANAX 0.5MG0.5 MG PO
== END ==
LOC: WSPT
DX: R19.7 Diarrhea, unspecified (principal); Z90.49 Acquired absence of other specified parts of digestive tract

== ENCOUNTER 2021-09-03 09:00 | Outpatient (RCR) | payer MEDICAID | END 2021-09-12 | disposition home or self-care (01) | LOC: WSPT | DX: R19.7 Diarrhea, unspecified (principal); Z90.49 Acquired absence of other specified parts of digestive tract ==

== ENCOUNTER 2021-10-01 16:30 | Outpatient (RCR) | payer MEDICAID | END 2021-10-13 | disposition home or self-care (01) | LOC: WSPT | DX: R19.7 Diarrhea, unspecified (principal); Z90.49 Acquired absence of other specified parts of digestive tract; Z98.890 Other specified postprocedural states ==

== ENCOUNTER 2022-03-16 19:28 | Emergency (ER) | payer OTHER, MEDICAID ==
[~2022-03-16] VITALS: Ht 165.1 cm; Wt 71.4 kg
[2022-03-16 19:39] VITALS: TEMP 98.4
[2022-03-16 20:19] LABS: BASO # 0.1 K/mm3 (0.0-0.2); BASO % 0.8 % (0.0-2.0); EOS # 0.2 K/mm3 (0.0-0.7); EOS % 1.3 % (0.0-4.0); GRAN # 8.5 K/mm3 (1.4-6.5); GRAN % 71.3 % (42.2-75.2); HEMOGLOBIN 10.9 g/dl (12.5-16.0); LYMPH # 2.1 K/mm3 (1.2-3.4); LYMPH % 18.1 % (20.0-51.0); MEAN CELL VOLUME 92 fl (80.0-100.0); MEAN CORPUSCULAR HEMOGLOBIN 30 pg (27-31); MEAN CORPUSCULAR HGB CONC 33 g/dl (33.0-37.0); MEAN PLATELET VOLUME 8.5 fl (7.4-10.4); PLATELET COUNT 635 K/mm3 (130-400); REDCELL DISTRIBUTION WIDTH-CV 12.5 % (11.5-14.5)
[2022-03-16 20:20] LABS: HEMATOCRIT 33.2 % (37.0-47.0)
[2022-03-16 20:22] LABS: COLLECTION METHOD CLEAN CATCH
[2022-03-16 20:38] LABS: ALBUMIN 3.6 gm/dL (3.5-5.0); BILIRUBIN,TOTAL 0.4 mg/dL (0.2-1.2); C-REACTIVE PROTEIN 2.83 mg/dL (0.00-0.50); CALCIUM 9.1 mg/dL (8.4-10.2); CREATININE, serum 0.7 mg/dL (0.57-1.11); POTASSIUM 3.6 mmol/L (3.5-4.5); TOTAL PROTEIN 7.5 gm/dL (6.2-8.1)
[2022-03-16 20:39] LABS: URINE COLOR Yellow (YELLOW)
[2022-03-16 20:40] LABS: URINE APPEARANCE Cloudy (CLEAR/HAZY)
[2022-03-16 20:41] LABS: URINE BLOOD TRACE-INTACT (NEGATIVE); URINE GLUCOSE Negative (NEGATIVE); URINE KETONE 1+ (NEGATIVE); URINE NITRATE Negative (NEGATIVE); URINE PROTEIN(semi-quant) Negative (NEGATIVE); URINE UROBILINOGEN 0.2 E.U/dL (0.2-1.0)
[2022-03-16 20:43] LABS: MUCOUS Present (NOT PRESENT); SQUAMOUS EPITHELIAL 0-2 /hpf (0-10); URINE BACTERIA Rare /hpf (NONE SEEN); URINE RBC 0-2 /hpf (0-2)
[2022-03-16] MEDS ORDERED: ATIVAN 0.50.5 MG/TAB PO (23:34)
[2022-03-17] MEDS ORDERED: ROXICODONE 55 MG/TAB PO (00:04)
[2022-03-17 00:16] VITALS: BP 115/76; PULSE 93
== END 2022-03-17 00:16 | disposition home or self-care (01) ==
LOC: COL.ER 19:28
PROVIDERS: Emergency Medicine
DX: K66.8 Other specified disorders of peritoneum (principal); G89.18 Other acute postprocedural pain; Z28.310 Unvaccinated for COVID-19; Z88.5 Allergy status to narcotic agent; Z87.19 Personal history of other diseases of the digestive system; Z90.49 Acquired absence of other specified parts of digestive tract
CPT/HCPCS: J1170; J2060; J2405; J2550; J3010; J7030; Q9967

== ENCOUNTER 2023-05-17 16:27 | Emergency (ER) | payer MEDICAID ==
[~2023-05-17] VITALS: Ht 165.1 cm; Wt 72.7 kg
[2023-05-17 16:27] VITALS: TEMP 98.4
[~2023-05-17 16:27] MED LIST changes: +ATIVAN 0.50.5 MG/TAB PO
[2023-05-17 17:16] VITALS: BP 115/74; PULSE 80
== END 2023-05-17 17:18 | disposition home or self-care (01) ==
LOC: COL.ER 16:27
DX: S71.111A Laceration without foreign body, right thigh, initial encounter (principal); Z88.7 Allergy status to serum and vaccine; W26.0XXA Contact with knife, initial encounter; Y92.009 Unspecified place in unspecified non-institutional (private) residence as the place of occurrence of the external cause

== ENCOUNTER 2023-09-24 23:37 | Emergency (ER) | payer MEDICAID ==
[~2023-09-24] VITALS: Ht 165.1 cm; Wt 75.0 kg
[2023-09-24 23:43] VITALS: TEMP 98
[2023-09-25] MEDS ORDERED: HYDROmorphone 0.5 MG/0.5 ML SYRINGE IV PRN (00:15)
[2023-09-25] MEDS ORDERED: NS 1,000 ML IV ONE (00:15)
[2023-09-25] MEDS ORDERED: Promethazine 50 MG/ML 1 ML VIAL IM ONE (00:15)
[2023-09-25 00:20] LABS: BASO # 0.1 K/mm3 (0.0-0.2); BASO % 0.7 % (0.0-2.0); EOS # 0.4 K/mm3 (0.0-0.7); EOS % 3.5 % (0.0-4.0); GRAN # 6.5 K/mm3 (1.4-6.5); GRAN % 64.9 % (42.2-75.2); HEMATOCRIT 37.2 % (37.0-47.0); HEMOGLOBIN 12.2 g/dl (12.5-16.0); LYMPH # 2.2 K/mm3 (1.2-3.4); LYMPH % 21.9 % (20.0-51.0); MEAN CELL VOLUME 93 fl (80.0-100.0); MEAN CORPUSCULAR HEMOGLOBIN 31 pg (27-31); MEAN CORPUSCULAR HGB CONC 33 g/dl (33.0-37.0); MEAN PLATELET VOLUME 9.6 fl (7.4-10.4); MONO # 0.8 K/mm3 (0.1-0.6); MONO % 8.1 % (1.7-9.3); PLATELET COUNT 308 K/mm3 (130-400); REDCELL DISTRIBUTION WIDTH-CV 13.2 % (11.5-14.5)
[2023-09-25 00:39] LABS: ALBUMIN 3.8 g/dL (3.5-5.0); BILIRUBIN,TOTAL 0.3 mg/dL (0.2-1.2); CALCIUM 10.2 mg/dL (8.4-10.2); CREATININE, serum 0.82 mg/dL (0.57-1.11); POTASSIUM 3.8 mEq/L (3.5-4.5); TOTAL PROTEIN 7.1 g/dl (6.2-8.1)
[2023-09-25] MEDS ORDERED: Iohexol 300 - 100 ML VIAL IV ONE (01:31)
[2023-09-25] MEDS ORDERED: NS 100 ML IV SCH (01:32)
[2023-09-25 04:30] VITALS: O2SAT 100
[2023-09-25] MEDS ORDERED: droPERidol 2.5 MG/ML 2 ML VIAL IV ONE ×2 (04:45→08:15)
[2023-09-25] MEDS ORDERED: Sucralfate Susp 1 GM/10 ML UD PO ONE (07:30)
[2023-09-25 08:15] VITALS: BP 97/56; PULSE 86
== END 2023-09-25 08:15 | disposition short-term general hospital (02) ==
LOC: COL.ER 23:37
PROVIDERS: Nurse Practitioner Family
DX: K56.609 Unspecified intestinal obstruction, unspecified as to partial versus complete obstruction (principal); Z43.3 Encounter for attention to colostomy
CPT/HCPCS: J0780; J1170; J1790; J2550; J7030; Q9967